=== PATIENT | male | born 1945 | race American Indian/Alaskan Native ===

== ENCOUNTER 2017-11-19 15:18 | Inpatient (IN) | payer MEDICARE, BC ==
--- NOTE | 2017-11-19 15:46 | ED PDOC ---
Arrival/HPI - General Chief Complaint: Chest Pain Time Seen by Provider: 11/19/17 15:44 Historian: Patient, Spouse - History of Present Illness Narrative History of Present Illness (Text): 11/19/17 18:12 pt p/w + upper chest region pain/pressure, at most pain is 6-7/10; non-radiating ; pt states chest pain/pressure wax and wanes; pt + sob/mild lightheadedness, + weakness, + palpitations; pt denied sweats/numbness/tingling; pt states over the last 2-3 days, felt like he is coming down with a cold/illness; pt states + easily fatigued; pt states decr appetite; pt states no fever/chills/sweats, no abd pain, no n/v, no numbness/tingling, no urinary/bowel changes, no gross bleeding; no fall/trauma/sick contact, no travel; pt was treated with abx > 1.5 weeks ago for bronchitis; pt denied other complaints; pt is here for further eval. 11/19/17 18:38 Time/Duration: 24 hours (chest pain this morning), < week (~ 2 days onset of general weakness) Symptom Onset: Sudden Symptom Course: Intermittent Quality: Tightness Severity Level: 7, Severe Activities at Onset: Rest Context: Sitting Past Medical History - Provider Review Nursing Documentation Reviewed: Yes - Travel History Have you recently traveled outside [place] w/in the past 3 mons?: No - Past History Past History: No Previous - Infectious Disease Hx of Infectious Diseases: None - Cardiac Hx Hypertension: Yes - Musculoskeletal/Rheumatological Hx Falls: No - Psychiatric Hx Depression: No Hx Emotional Abuse: No Hx Physical Abuse: No Hx Substance Use: Yes - Suicidal Assessment Feels Threatened In Home Enviroment: No Family/Social History - Physician Review Nursing Documentation Reviewed: Yes Family/Social History: No Known Family HX Smoking Status: Former Smoker Hx Alcohol Use: Yes Hx Substance Use: Yes Substance used: coccaine Hx Substance Use Treatment: No Allergies/Home Meds Allergies/Adverse Reactions: Allergies No Known Allergies Allergy (Verified 11/19/17 15:23) Home Medications: Home Meds Medication Instructions Recorded Confirmed Aspirin [Aspirin EC] 325 mg PO DAILY 11/19/17 11/19/17 Cholecalciferol (Vitamin D3) 2,000 unit PO DAILY 11/19/17 11/19/17 [Vitamin D3] GlipiZIDE [Glipizide] 10 mg PO DAILY 11/19/17 11/19/17 Levofloxacin [Levaquin] 500 mg PO DAILY 11/19/17 11/19/17 Lisinopril/Hydrochlorothiazide 1 each PO DAILY 11/19/17 11/19/17 [Lisinopril-Hctz 10-12.5 mg Tab] Metoprolol Tartrate [Lopressor] 25 mg PO BID 11/19/17 11/19/17 Ranitidine HCl [Sunmark Acid 150 mg PO BID 11/19/17 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] Simvastatin 10 mg PO DAILY 11/19/17 11/19/17 Review of Systems - Review of Systems Constitutional: Fatigue, Other (weakness) Eyes: Normal ENT: Normal Respiratory: SOB Cardiovascular: Chest Pain, Palpitations Gastrointestinal: Normal Genitourinary Male: Normal Musculoskeletal: Normal Skin: Normal Neurological: Normal Endocrine: Normal Hemo/Lymphatic: Normal Psychiatric: Normal Physical Exam Vital Signs Reviewed: Yes (elevated HR) Vital Signs Temp Pulse Resp BP Pulse Ox 11/19/17 18:33 123 H 117/83 11/19/17 15:59 114 H 16 110/79 100 11/19/17 15:52 140 H 120/72 11/19/17 15:33 118/78 11/19/17 15:23 98.3 F 124 H 16 95 11/19/17 15:22 98.3 F 124 H 20 95 Temperature: Afebrile Blood Pressure: Normal Pulse: Tachycardic Respiratory Rate: Normal Appearance: Positive for: Well-Appearing, Non-Toxic, Other (uncomfortable, alert /awake, GCS = 15, oriented x 3, resting in bed, cooperative) Pain Distress: None Mental Status: Positive for: Alert and Oriented X 3 - Systems Exam Head: Present: Atraumatic, Normocephalic Pupils: Present: PERRL Extroacular Muscles: Present: EOMI Conjunctiva: Present: Normal Ears: Present: Normal Mouth: Present: Other (mild dry oral mucosa, no drooling/stridor, fair dentitions, no exudate/lesions) Pharnyx: Present: Normal Nose (External): Present: Atraumatic Neck: Present: Normal Range of Motion, Trachea Midline, Other (no step off, no midline tenderness, no nuchal rigidity, no stridor/dysphonia). No: MIDLINE TENDERNESS Respiratory/Chest: Present: Clear to Auscultation, Good Air Exchange, Other ( CTA b/l, no w/r/r). No: Respiratory Distress, Accessory Muscle Use Cardiovascular: Present: Regular Rate and Rhythm, Normal S1, S2, Other (+tachy, + regular, no regurg). No: Murmurs Abdomen: Present: Normal Bowel Sounds, Other (well nourished male, no focal tenderness, no melendrez's sign, no mcburney's point tenderness). No: Tenderness, Distention, Peritoneal Signs Back: Present: Normal Inspection Upper Extremity: Present: Normal Inspection, Normal ROM, NORMAL PULSES, Neurovascularly Intact, Capillary Refill < 2s. No: Cyanosis, Edema Lower Extremity: Present: Normal Inspection, NORMAL PULSES, Capillary Refill < 2 s, Other (noted mid tib/fib +1/5 b/l pitting edema, NON-tender, no herson's sign, neurovasc intact b/l). No: Edema, Herson's Sign Neurological: Present: GCS=15, CN II-XII Intact, Speech Normal Skin: Present: Warm, Dry, Normal Color, Other (cap refill < 1 sec, no pallor, no ulcerations, no rashes noted). No: Rashes Psychiatric: Present: Alert, Oriented x 3, Normal Insight, Normal Concentration Medical Decision Making ED Course and Treatment: 11/19/17 15:47 Impression: chest pain, sob, weakness i have consider all the differential diagnosis regarding pt's chief medical complaints/clinical findings, including but are not limited to: chest pain, r/o acs; sob/weakness, palpitations A/P: chest pain r/o acs; sob/, weakness, palpitations - labs - iv - xray - acs r/o - unlikely PE - will perform doppler - ua - observe - supportive care 11/19/17 15:59 11/19/17 17:25 pt responded to cardizem bolus but then hr resumes > 100 currently pt states his chest pain is easing pt is comfortable pt is made aware of his medical results agrees with admission I spoke to Dr Calderon, information assurance PCP, made aware, agrees with admission, agrees with ED mgt/txt; would like to consult dr gibson (cardiology) 11/19/17 17:27 pt took a full dose ASA this morning, prior to ED arrival 11/19/17 18:55 pt is placed on cardizem drip pt states his chest pain is improving with NTG pt/family are made aware of pt's medical results, agrees with admission pt's vital signs are improving as well Re-evaluation Time: 18:41 Reassessment Condition: Improving,but remains with symptoms - Critical Care Critical Care Minutes: 45 minutes Critical Care Time: Excluding Proc Time Narrative Critical Care (Text): 11/19/17 17:27 critical care time: 45min, excluding procedure time, excluding time teaching residents/students/mid-level providers; including initial eval/diagnosis, diagnostic interpretation, re-eval, consultations, final disposition - Lab Interpretations Lab Results: 11/19/17 15:20 11/19/17 17:00 Lab Results 11/19/17 17:00: Sodium 142, Potassium 5.0, Chloride 110 H, Carbon Dioxide 21, Anion Gap 17, BUN 36 H, Creatinine 1.4, Est GFR ( Amer) > 60, Est GFR ( Non-Af Amer) 50, Random Glucose 118 H, Calcium 10.0, Magnesium 1.3 L, Total Bilirubin 1.2, AST 43, ALT 52, Alkaline Phosphatase 122, Lactate Dehydrogenase 561, Total Creatine Kinase 65, Troponin I < 0.01, NT-Pro-B Natriuret Pep 2200 H , Total Protein 8.1, Albumin 3.9, Globulin 4.2, Albumin/Globulin Ratio 0.9 L 11/19/17 15:56: POC Glucose (mg/dL) 109 11/19/17 15:20: PT 12.7 H, INR 1.16 H, APTT 34.6 11/19/17 15:20: WBC 9.4, RBC 4.47, Hgb 14.7, Hct 44.2, MCV 98.9, MCH 32.9, MCHC 33.3, RDW 15.3 H, Plt Count 171, MPV 11.0, Gran % 60.6, Lymph % (Auto) 17.8 L, [place] % (Auto) 21.2 H, Eos % (Auto) 0.3 L, Baso % (Auto) 0.1, Gran # 5.70, Lymph # 1.7, [place] # 2.0 H, Eos # 0.0, Baso # 0.01, Neutrophils % (Manual) Pending, Lymphocytes % (Manual) Pending, Monocytes % (Manual) Pending elevated BNP I have reviewed the lab results: Yes Interpretation: Abnormal lab values - RAD Interpretation Radiology Orders: 11/19/17 15:44 CHEST TWO VIEWS (PA/LAT) [RAD] Stat DUPLEX LOWER EXTRM VEIN BILAT [US] Stat Prelim Duplex u/s: negative for dvt b/l Chest xray: mild cardiomeagly, no pleural effusion/edema noted, as read by me HISTORY: chest pain/sob COMPARISON: No prior. TECHNIQUE: Chest PA and lateral FINDINGS: LUNGS: There is a elliptical shaped radiopaque density in the right CP angle region which is of uncertain etiology. This could represent calcified pleural plaque however follow-up CT scan of the chest is recommended to exclude a parenchymal mass. Note that this report was placed in PA review folder for followup. Note however that superior tip right lung apex has been partially obscured by overlying mandible artifact PLEURA: No significant pleural effusion identified. No pneumothorax apparent. CARDIOVASCULAR: Cardiomegaly OSSEOUS STRUCTURES: No significant abnormalities. VISUALIZED UPPER ABDOMEN: Normal. OTHER FINDINGS: None. IMPRESSION: Elliptical shaped radiopaque density right CP angle region of uncertain etiology. Rule out calcified pleural plaque however parenchymal mass not excluded. Followup the CT scan of the chest recommended. Note this report was placed in PA review folder for followup. Digital Marketer: Radiologist - EKG Interpretation EKG Interpretation (Text): 11/19/17 16:01 Atrial flutter at 125 bpm, LAD, no ectopy, non-specific st-t changes, ABNL EKG; no old ekg to compare with Interpreted by ED Physician: Yes Type: 12 lead EKG Comparison: No previous EKG avail. - Medication Orders Current Medication Orders: diltiaZEM IVPB 100mg in NS (Cardizem 100mg In Ns) 100 mls @ 5 mls/hr IV .Q20H PRN; Protocol; 5 MG/HR PRN Reason: TITRATE PER MD ORDER Last Titration: 11/19/17 18:00 Dose: 7.5 mg/hr, 7.5 mls/hr MAR Pulse Rate Document 11/19/17 18:00 AB (Rec: 11/19/17 18:33 [id number]) Pulse Rate Pulse Rate (60-90) 123 Titration Intervention Document 11/19/17 18:00 AB (Rec: 11/19/17 18:33 [id number]) Titration Intake Container Volume 100 Titration Dosing Titration Dose 7.5 IV Rate 7.5 Intake/Decrease Started Discontinued Medications Diltiazem HCl (Cardizem) 15 mg IVP STAT STA Stop: 11/19/17 15:46 Last Admin: 11/19/17 15:52 Dose: 15 mg IVP Administration Document 11/19/17 15:52 AB (Rec: 11/19/17 15:55 [id number]) Charges for Administration # of IVP Administrations 1 MAR Pulse and Blood Pressure Document 11/19/17 15:52 AB (Rec: 11/19/17 15:55 [id number]) Pulse Pulse Rate (60-90) 140 Blood Pressure Blood Pressure (100/60-150/90) 120/72 Diltiazem HCl (Cardizem) 10 mg IVP STAT STA Stop: 11/19/17 18:12 Last Admin: 11/19/17 18:33 Dose: 10 mg IVP Administration Document 11/19/17 18:33 AB (Rec: 11/19/17 18:33 [id number]) Charges for Administration # of IVP Administrations 1 MAR Pulse and Blood Pressure Document 11/19/17 18:33 AB (Rec: 11/19/17 18:33 [id number]) Pulse Pulse Rate (60-90) 123 Blood Pressure Blood Pressure (100/60-150/90) 117/83 Nitroglycerin (Nitro-Bid 2% Oint) 1 ea TOP STAT STA Stop: 11/19/17 18:11 Last Admin: 11/19/17 18:33 Dose: 1 ea Disposition/Present on Arrival - Present on Arrival Any Indicators Present on Arrival: No History of DVT/PE: No History of Uncontrolled Diabetes: No Urinary Catheter: No History of Decub. Ulcer: No History Surgical Site Infection Following: None - Disposition Have Diagnosis and Disposition been Completed?: Yes Diagnosis: Atrial flutter by electrocardiogram, Chest pain syndrome, Shortness of breath Disposition: HOSPITALIZED Disposition Time: 18:10 Patient Plan: Admission, Telemetry Patient Problems: Current Active Problems Problem Status Onset Atrial flutter by electrocardiogram Acute Chest pain syndrome Acute Shortness of breath Acute Condition: FAIR
[2017-11-19 15:54] LABS: BASO # 0.01 K/mm3 (0.0-2.0); BASO % 0.1 % (0.0-3.0); EOS % 0.3 % (1.5-5.0); GRAN % 60.6 % (50.0-68.0); HEMOGLOBIN 14.7 g/dL (14.0-18.0); LYMPH # 1.7 (1.2-3.4); LYMPH % 17.8 % (22.0-35.0); MEAN CELL VOLUME 98.9 fl (80.0-105.0); MEAN CORPUSCULAR HEMOGLOBIN 32.9 pg (25.0-35.0); MEAN CORPUSCULAR HGB CONC 33.3 g/dl (31.0-37.0); MONO % 21.2 % (1.0-6.0); PLATELET COUNT 171 10^3/uL (120.0-450.0); RBC 4.47 10^6/uL (3.5-6.1); RED CELL DISTRIBUTION WIDTH 15.3 % (11.5-14.5); WHITE BLOOD COUNT 9.4 10^3/ul (4.5-11.0)
[2017-11-19 16:09] LABS: INR 1.16 (0.93-1.08); PARTIAL THROMBOPLASTIN TIME 34.6 Seconds (25.1-36.5); PROTHROMBIN TIME 12.7 SECONDS (9.4-12.5)
[2017-11-19 17:15] LABS: ALB/GLOB RATIO 0.9 (1.1-1.8); ALBUMIN 3.9 g/dL (3.0-4.8); ALT/SGPT 52 U/L (7-56); AST/SGOT 43 U/L (17-59); BLOOD UREA NITROGEN 36 mg/dL (7-21); GFR AFRICAN-AMERICAN > 60; GFR NON-AFRICAN AMERICAN 50; MAGNESIUM 1.3 mg/dL (1.7-2.2)
[2017-11-19] MEDS ORDERED: diltiaZEM IVPB 100mg in NS 100 ML IV PRN (17:24)
[2017-11-19 17:27] LABS: B-TYPE NATRIURETIC PEPTIDE 2200 pg/mL (0-450); TROPONIN I < 0.01 ng/mL
--- NOTE | 2017-11-19 18:02 | RAD ---
HISTORY: chest pain/sob COMPARISON: No prior. TECHNIQUE: Chest PA and lateral FINDINGS: LUNGS: There is a elliptical shaped radiopaque density in the right CP angle region which is of uncertain etiology. This could represent calcified pleural plaque however follow-up CT scan of the chest is recommended to exclude a parenchymal mass. Note that this report was placed in PA review folder for followup. Note however that superior tip right lung apex has been partially obscured by overlying mandible artifact PLEURA: No significant pleural effusion identified. No pneumothorax apparent. CARDIOVASCULAR: Cardiomegaly OSSEOUS STRUCTURES: No significant abnormalities. VISUALIZED UPPER ABDOMEN: Normal. OTHER FINDINGS: None. IMPRESSION: Elliptical shaped radiopaque density right CP angle region of uncertain etiology. Rule out calcified pleural plaque however parenchymal mass not excluded. Followup the CT scan of the chest recommended. Note this report was placed in PA review folder for followup.
[2017-11-19] MEDS ORDERED: Nitroglycerin 2% Ointment Foilpak UD TOP STA (18:10)
[2017-11-19 18:43] LABS: NEUTROPHIL 49 % (50.0-70.0)
[2017-11-19 18:44] LABS: EOSINOPHIL 1 % (0.0-3.0); LYMPHOCYTE 30 % (22.0-35.0); MONOCYTE 20 % (1.0-6.0); PLATELET ESTIMATE NORMAL (NORMAL)
[2017-11-19 18:45] LABS: ANISOCYTOSIS SLIGHT
[2017-11-19] MEDS ORDERED: diltiaZEM IVPB 100mg in NS 100 ML IV SCH (19:00)
[2017-11-19] MEDS: Insulin Reg-MEDIUM-Coverage SC SCH (22:01)
[2017-11-19 22:03] LABS: HDL CHOLESTEROL 41 mg/dL (29-60)
[2017-11-19 22:05] VITALS: BMI 36.8
[2017-11-19] MEDS ORDERED: Influenza Vaccine 60 mcg/0.5 mL SYR (4YR UP) IM ONE (22:05)
[2017-11-19] MEDS ORDERED: Pneumococcal 23-Valent Vaccine IM ONE (22:05)
[2017-11-19 22:14] LABS: LDL CHOLESTEROL 49 mg/dL (0-129)
[2017-11-20] MEDS ORDERED: Levalbuterol 0.63 MG/3 ML Inhal Soln UD IH STA (00:23)
[2017-11-20 07:49] LABS: FREE T4 1.14 ng/dL (0.78-2.19)
[2017-11-20 08:03] LABS: ALB/GLOB RATIO 0.9 (1.1-1.8); ALBUMIN 3.5 g/dL (3.0-4.8); CALCIUM 9.4 mg/dL (8.4-10.5); MAGNESIUM 1.3 mg/dL (1.7-2.2)
[2017-11-20] MEDS: Insulin Reg-MEDIUM-Coverage SC SCH ×4 (08:23→22:00)
[2017-11-20] MEDS: Levalbuterol 0.63 MG/3 ML Inhal Soln UD IH SCH ×3 (08:39→20:17)
--- NOTE | 2017-11-20 09:53 | CARD ---
APPROVED REPORT EKG Measurement Heart [id number] P-78 [id number] <Conclusion> Atrial flutter with 2:[address] & T wave abnormality, consider inferolateral ischemia Abnormal ECG
[2017-11-20] MEDS: Cholecalciferol 1,000 INTLU TAB PO SCH (10:23)
[2017-11-20] MEDS ORDERED: guaiFENesin DM 100 mg-10 mg/5 ml UD PO PRN (10:47)
[2017-11-20] MEDS ORDERED: Magnesium Sulfate 1 gm in D5W 1 GM/100 ML BAG IV ONE (14:40)
[2017-11-20] MEDS ORDERED: Sod Polystyrene Sulf 15 gm/60 ml Susp PO ONE (17:05)
--- NOTE | 2017-11-20 18:48 | US ---
HISTORY: Leg pain and swelling. Evaluate for DVT PHYSICIAN(S): Nemesio Vazquez MD. TECHNIQUE: Duplex sonography and color-flow Doppler with graded compression were used to evaluate the deep venous systems of both lower extremities. FINDINGS: The visualized deep venous systems of both lower extremities are sonographically normal and compressible. Normal wave forms and augmentation are seen. There is no sonographic evidence for deep venous thrombosis in the visualized segments of both lower extremities. IMPRESSION: No sonographic evidence for deep venous thrombosis in the visualized segments of both lower extremities.
--- NOTE | 2017-11-20 20:46 | CT ---
EXAM: CT Chest Without Intravenous Contrast EXAM DATE/TIME: 11/20/2017 2:40 PM CLINICAL HISTORY: The patient age is 72 years old and is male; Pain; Chest pain; Type not specified; Additional info: Mass Facility exam id and description: Ct chests chest w/o contrast TECHNIQUE: Axial computed tomography images of the chest without intravenous contrast. All CT scans at this facility use one or more dose reduction techniques, viz.: automated exposure control; ma/kV adjustment per patient size (including targeted exams where dose is matched to indication; i.e. head); or iterative reconstruction technique. Coronal and sagittal reformatted images were created and reviewed. COMPARISON: DX - CHEST TWO VIEWS (PA/LAT) 11/19/2017 4:32:03 PM FINDINGS: Lungs: On series 4 image 69 within the left lower lobe, there is a 1 cm irregular nodule. Mild emphysematous changes are identified within the lungs bilaterally, which are predominantly centrilobular. Increased interstitial markings are identified, most significant peripherally and at the lung bases. Pulmonary fibrosis is suggested. Pleural space: A calcified pleural plaque is identified at the lateral right lung base with adjacent small consolidation. The calcified pleural plaque can be associated with asbestos exposure. Mild bilateral pleural thickening or minimal effusions are visualized. No pneumothorax. Heart: No cardiomegaly. No significant pericardial effusion. 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 Soft tissues: There is bilateral gynecomastia. Vasculature: No thoracic aortic aneurysm. Mild atherosclerotic changes. Lymph nodes: Small mediastinal lymph nodes are visualized, without significant Liver: A small calcification is visualized within the left hepatic lobe. Pancreas: There is peripancreatic stranding, suggestive of acute pancreatitis. There is an isodense nodule in the region of the distal pancreatic tail measuring 2.3 x 1.5 cm. Evaluation of this finding is limited without intravenous contrast. IMPRESSION: 1. Within the left lower lobe, there is a 1 cm irregular nodule. PET/CT is recommended to exclude malignancy. 2. A calcified pleural plaque is identified at the lateral right lung base with adjacent small consolidation. The calcified pleural plaque can be associated with asbestos exposure. A follow-up CT is recommended. 3. Mild bilateral pleural thickening or minimal effusions are visualized. 4. Increased interstitial markings are identified, most significant peripherally and at the lung bases. Pulmonary fibrosis is suggested. 5. There is peripancreatic stranding, suggestive of acute pancreatitis. Correlation with pancreatic enzymes is recommended. 6. There is an isodense nodule in the region of the distal pancreatic tail measuring 2.3 x 1.5 cm. A nonemergent MRI of the abdomen with contrast is recommended. 7. Incidental/non-acute findings are described above.
--- NOTE | 2017-11-20 23:49 | HP ---
HISTORY OF PRESENT ILLNESS: The patient 72-year-old, states he has not been feeling well for last almost a week. He has been coughing. He was very congested. No hemoptysis. The patient states yesterday he started having chest discomfort that brought him to the hospital for further evaluation. Denies any palpitation or dizziness. No headache. The patient states he did have stress test, but long time ago. Does complain of generalized weakness and shortness of breath. No history of nausea or vomiting. No history of fever or chills. He did have almost a week ago, but got better now. PAST MEDICAL HISTORY: Significant for hypertension and non-insulin dependent diabetes. ALLERGIES: HE IS NOT ALLERGIC TO ANY MEDICATION. MEDICATIONS AT HOME: He is on; 1. Simvastatin 10 mg daily. 2. Ranitidine 150 mg twice a day. 3. Metoprolol 25 twice a day. 4. Lisinopril 10/12.5 daily. 5. Glipizide 10 mg daily. 6. Aspirin 81 daily. SOCIAL HISTORY: He used to be heavy smoker before and he did use illicit drugs couple of years ago, but quit years ago and he does socially drinks. REVIEW OF SYSTEMS: Significant for cough and congestion and intermittent chest pressure. PHYSICAL EXAMINATION GENERAL: He is awake, alert, oriented, able to communicate. VITAL SIGNS: He is afebrile, pulse 112, respirations 20, blood pressure 113/72. LUNGS: Bilateral fair airflow. No rhonchi or crackle. HEART: S1 and S2 audible. ABDOMEN: Soft, nontender. No rebound. No guarding. NEUROLOGIC: He is awake, alert, oriented, communicative. LABORATORY DATA: WBC 9.4, hemoglobin 14, hematocrit 44, platelet 71. PT 12.7, INR 1.16. Chemistry; sodium 138, potassium 5.6, chloride 108, CO2 21, BUN 38, creatinine 1.5, blood sugar of 122, magnesium 1.3, total bili 1.5. His EKG shows AFib with 2:1 AV conduction block and x-ray chest. X-ray chest shows elliptical density questionable mass. ASSESSMENT AND PLAN: 1. Chest pain. 2. New onset atrial fibrillation, rule out underlying coronary ischemia. 3. Morbid obesity. 4. Nwb-lghxzwl-dckdnqlwu diabetes. 5. Hypertension. 6. Hypomagnesemia. PLAN: Currently, the patient is on diltiazem 60 mg three times a day. He is on doxycycline. We will give him nebulizer treatment and supplement his magnesium. Cardiology consult by Dr. Bui has been requested. We will order for echocardiogram. Followup thyroid profile and I will order for CT scan of the chest to further define the density and his lower lung region. Vilma Calderon MD
--- NOTE | 2017-11-21 04:13 | CON ---
DATE: 11/20/2017 LOCATION: The patient is in room 378, bed 1. REASON FOR CONSULTATION: Chest pain, atrial flutter, hypertension, diabetes, high cholesterol, and COPD. HISTORY OF PRESENT ILLNESS: The patient is a 72-year-old male known case of COPD, high blood pressure, diabetes, high cholesterol, admitted with history that few days ago, he has symptoms of sore throat and cough and now on the day of admission, he started getting throbbing type of chest pain off and on. Prior to this, he never had any exertional chest pain or any cardiac problem that he knows of. When he came to Emergency Room, he was found to have atrial flutter with 2:1 block with heart rate around 124 per minute. The patient denies any palpitations or dizziness. PAST MEDICAL HISTORY: As mentioned before, the patient known to have COPD, high blood pressure, diabetes, and high cholesterol. He also states once he had slurring of speech and it resolved, but that time he also using cocaine. PERSONAL HISTORY: He stopped drinking 3 years ago, he used to smoke half pack a day, he used to drink heavy, and 3 years ago stopped it. The patient also used to use cocaine. FAMILY HISTORY: Mother had breast carcinoma. Father has some pulmonary problems. ALLERGIES: THE PATIENT DENIED ANY ALLERGIES. MEDICATIONS: The patient's home medications included aspirin 325 mg daily, vitamin D3 2000 units p.o. daily, glipizide 10 mg daily, Levaquin 500 mg daily, lisinopril/hydrochlorothiazide 10-12.5 mg daily, metoprolol tartrate 25 mg b.i.d., ranitidine HCl 150 b.i.d., and simvastatin 10 mg daily. REVIEW OF SYSTEMS: All the systems reviewed, positive mentioned in the history otherwise negative. PHYSICAL EXAMINATION: VITAL SIGNS: Blood pressure 123/75, respirations 18, pulse is 124 per minute, and temperature 98. HEENT: Head is normocephalic. Eyes; pupils are normal. Conjunctivae are normal. Nose and throat are normal. NECK: JVP low. Carotids are equal. THORAX: AP diameter normal. LUNGS: Clear. CARDIOVASCULAR: S1 and S2. ABDOMEN: Protuberant. No organomegaly. Bowel sounds normal. EXTREMITIES: No clubbing. No cyanosis. LABORATORY DATA: WBC 9.4, hemoglobin 14.7, hematocrit 44.2, and platelet 171. Sugar 65. Sodium 142, potassium 5.0, BUN 36, and creatinine 1.4. AST and ALT normal. Magnesium 1.3. Troponin less than 0.01. NT-proBNP 2200. Chest x-ray showed elliptical shaped radiopaque density, right costophrenic angle of uncertain etiology. EKG showed atrial flutter with 2:1 AV conduction, ST-T changes. DIAGNOSES: Atypical type chest pain, atrial flutter 2:1 block, chronic obstructive pulmonary disease, high blood pressure, diabetes, high cholesterol, and renal dysfunction. PLAN: Echo has been already ordered. We will do IV Lexiscan stress test. We will also check lipid profile and TSH. The patient on Cardizem 60 mg p.o. t.i.d., but his heart rate is still 118, so we will add atenolol 25 mg now and 25 mg daily to control the heart rate. We will Lopressor 25 mg b.i.d. We will continue atorvastatin 10 mg daily, glipizide 10 mg p.o. daily, Eliquis 5 mg b.i.d., and doxycycline hyclate 100 mg p.o. q.12 hours. The patient already has achieved sodium polystyrene 30 g, atorvastatin 10 mg daily. The patient also received magnesium sulfate 1 g IV, vancomycin 250 p.o. four times daily, and lisinopril 10 mg daily. We will check TSH and lipid profile in a.m. and echo has been already requested. We will also do IV Lexiscan stress test and we will monitor with you and follow with you. Ceferino Roman MD
[2017-11-21] MEDS: Levalbuterol 0.63 MG/3 ML Inhal Soln UD IH SCH ×3 (07:33→19:27)
[2017-11-21 07:58] LABS: ALB/GLOB RATIO 0.9 (1.1-1.8); ALBUMIN 3.4 g/dL (3.0-4.8); ALT/SGPT 38 U/L (7-56); AST/SGOT 25 U/L (17-59); BLOOD UREA NITROGEN 49 mg/dL (7-21); CALCIUM 9.3 mg/dL (8.4-10.5); GFR AFRICAN-AMERICAN 33; GFR NON-AFRICAN AMERICAN 27; HDL CHOLESTEROL 37 mg/dL (29-60); LDL CHOLESTEROL < 30 mg/dL (0-129); MAGNESIUM 1.6 mg/dL (1.7-2.2)
[2017-11-21] MEDS ORDERED: Aminophylline 25 mg/ml Inj ONE (09:17)
[2017-11-21] MEDS: Insulin Reg-MEDIUM-Coverage SC SCH ×4 (09:48→22:19)
[2017-11-21] MEDS ORDERED: Sodium Chloride 0.9% 1,000 ML IV SCH (12:30)
[2017-11-21] MEDS ORDERED: Digoxin 500 mcg/2ml (0.5 mg/2ml) Inj IVP STA (12:36)
[2017-11-21] MEDS ORDERED: Magnesium Sulfate 1 gm in D5W 1 GM/100 ML BAG IVPB ONE (12:42)
[2017-11-21 12:57] LABS: AMYLASE 43 U/L (35-125); LIPASE 32 U/L (23-300)
--- NOTE | 2017-11-21 13:01 | PN ---
DATE: 11/21/2017 LOCATION: The patient in room 378, bed 1. REASON FOR CONSULTATION: Chest pain, atrial flutter, hypertension, diabetes, high cholesterol, COPD, obesity. SUBJECTIVE: The patient was admitted with yesterday chest pain, found to have atrial flutter. Today, the patient says he does not have any chest pain. He does not feel any palpitation or shortness of breath, but monitor continued to show atrial flutter and heart rate around 116 per minute. Yesterday, heart rate was around 124 to 128 per minute. The patient is lying flat in bed without any cardiac symptoms. PHYSICAL EXAMINATION: VITAL SIGNS: Blood pressure is 93/69, respirations 19, pulse 116, temperature 97.4. HEENT: Head is normocephalic. Eyes: Pupils normal. Conjunctivae normal. Nose and throat normal. NECK: JVP low. Carotids equal. THORAX: AP diameter normal. LUNGS: Clear. CARDIOVASCULAR: S1 and S2. ABDOMEN: Protuberant. No organomegaly. EXTREMITIES: No clubbing. No cyanosis. LABORATORY DATA: WBC 9.4, hemoglobin 14.7, hematocrit 44.2, platelets 171. Sodium 137, potassium 4.4, BUN 49, creatinine 2.4, magnesium is 1.6. TSH 1.31, which is normal. Total protein, albumin normal. DIAGNOSES: Atypical chest pain, atrial flutter, 2:1 block, chronic obstructive pulmonary disease, high blood pressure, diabetes, high cholesterol, renal dysfunction, hypomagnesemia. PLAN: The patient is going to have echo and IV Lexiscan stress test today. We will give one stat dose of digoxin 0.25 IV stat and verapamil 2.5 IV stat. The patient is already on atenolol 25 mg daily and Cardizem 60 p.o. t.i.d., atorvastatin 10 daily, glipizide 10 daily, Eliquis 5 mg b.i.d., doxycycline hyclate 100 mg q. 12 hours. We will give mag sulfate 1 g IV. I will repeat labs in the morning. The patient is also getting vancomycin 250 mg p.o. 4 times a day and lisinopril 10 mg daily. We will follow with you. Ceferino Roman MD
[2017-11-21] MEDS: Vancomycin 25 MG/ML PO SCH ×4 (13:02→23:20)
[2017-11-21] MEDS: Sodium Chloride 0.9% 1,000 ML IV SCH (13:37)
[2017-11-21] MEDS: Cholecalciferol 1,000 INTLU TAB PO SCH (14:28)
--- NOTE | 2017-11-21 14:53 | CARD ---
APPROVED REPORT Protocol: LEXISCAN Test Type: Lexiscan Sestamibi Stress Test Attending Physician: Dr. Ceferino Roman Referring Physician: Dr. Vilma Calderon Test Indications: Chest Pain Height:5 ft 6 in Weight:225lbs Medications: TYLENOL, ELIQUIS, TENORMIN, LIPITOR, VITAMIN D, CARDIZEM, DORYX, PEPCID, GLUCOTROL, ROBITUSSIN DM, XOPENEX, ZESTRIL, VANCOMYCIN Medical History: 72 YEAR OLD MALE WITH A H/O DIABETES, HTN, HIGH CHOLESTEROL, GERD, ULCERS AND ARTHRITIS Target HR: 150 bpm Resting ECG: Atrial Flutter 2:1 Block. Resting Heart Rate: 116 bpm Resting Blood Pressure: 108/66mmHg Submaximum (85%): 128 bpm PROCEDURE Pharmacologic stress testing was performed using 0.4mg per 5ml of regadenoson given intravenously over 7-10 seconds. POST EXERCISE Reason for Termination: Protocol completed Target HR: No Max HR: 116 bpm 80% of Maximum Predicted HR: 150 bpm Exercise duration: 00:32 min:sec, 0 Stage Exercise capacity: 1.0METs Max Blood Pressure: 108/66mmHg Blood Pressure response to exercise: normal resting BP - appropriate response Heart Rate response to exercise: appropriate Chest Pain: No, none Angina index: 0 Arrhythmia: Yes, Atrial Flutter as on Resting EKG. ST Change: No, none Deviation: 0 mm INTERPRETATION Stress EKG Conclusion: IV LEXISCAN NUCLEAR STRESS TEST NEGATIVE FOR CHEST PAIN AND NEGTIVE FOR ST-T CHANGES. NUCLEAR SCAN REPORT PENDING. Signed by Ceferino Roman Electronically Approved: 11/21/2017 10:53:37 EXAM: Myocardial Perfusion REST/STRESS Stress Test Type: Pharmacologic Imaging Protocol Rest Spect myocardial perfusion imaging was performed in supine position 45 minutes following the injection of 10.6 mCi of Tc-99 Myoview. At peak stress, the patient was injected intravenously with 30.2mCi of Tc-99 tetrofosmin after an infusion time of 0 minutes and 10 seconds. Gated Stress Spect was performed 65 minutes after intravenous Tc-99 Myoview injection. The images were gated to evaluate regional wall motion and calculate ventricular ejection fraction.Images were reconstructed using backfilter projection method in short horizontal and verticle long axis. Spect slices were generated. LV Perfusion The quality of the study is good. The left ventricle is within normal limits in size. The right ventricle is unremarkable. The lung uptake is within normal limits. The distribution of tracer reveals an area of moderately to severely decreased perfusion in the apical/ distal inferior wall and moderately and diffusely decreased perfusion in the mid to basal inferior wall on the stress studyy. The remainder of the LV myocardium is unremarkable. The rest myocardial perfusion study shows improvement of the apical/ distal inferior defect and no signifiicant change in the mid to basal inferior defect. Wall Motion Wall motion study shows diffuse hypokinesis and paradoxical septal wall motion of the left ventricle. LVEF =32%. Conclusion 1. Abnormal SPECT myocardial perfusion study. 2. Partially reversible, apical/ distal inferior defect is suspicious of ischemia. 3. Fixed, mid to basal inferior defect is most liklely due to diaphragmatic attenuation. 4. Moderate LV dysfunction with diffuse hypokinesis and paradoxical septal wall motion.
--- NOTE | 2017-11-21 15:42 | CP.PCM.CON ---
<Sahara Fields - Last Filed: 11/21/17 17:35> History of Present Illness - History of Present Illness History of Present Illness: Seen and examined at the bedside this afternoon, chart reviewed. Request for GI consultation is for acute pancreatitis. HPI:this is a 72-year-old male with a past medical history of hypertension, non- insulin-dependent diabetes, hyperlipidemia and COPD came to the emergency room with complaints of coughing and generalized weakness, SOB, and chest discomfort. The patient was recently treated for bronchitis over a week and a half ago with antibiotics. He denies any hemoptysis, nausea, vomiting, or abdominal pain. the patient had a stress test this morning, results are pending. Yesterday the patient went for a CAT scan of the chest without contrast which reported a 1 cm irregular nodule in the left lower lobe as well as peripancreatic stranding suggestive of acute pancreatitis. As well as a 2.3 x 1.5 cm isodense nodule in the region of the distal pancreatic tail. The patient denies any history of known pancreatitis, he does have a history of heavy alcohol use in the past, the patient reports that he stands cut down and only drinks socially. His last alcohol intake was last Sunday and reports only having a shot of alcohol. He does report decreased appetite recently and reports losing at least 10 pounds, patient states he is trying to lose weight and his is been watching his dietary intake. His last endoscopy and colonoscopy were more than 5 or 6 years ago, he has history of colon polyps and peptic ulcer disease. The patient informs that he is due for an endoscopy and colonoscopy on December 05/[address] Varma at [facility]. currently the patient denies any diarrhea or constipation but a review of his chart he reportedly had diarrhea yesterday and stool for C. difficile is pending and has been started on oral vancomycin. Denies melena or bright red blood per rectum. Past medical history: Hypertension, uqg-cdicykx-wwigjsfsd diabetes, colon polyps , hyperlipidemia, peptic ulcer disease, COPD Past surgical history: Denies, no cardiac interventions Family history: Noncontributory at this time Allergies: No known drug allergies Social history: Patient was a heavy smoker in the past, also reported drinking heavily in the past but has long since cut down and only drinks socially, last alcohol intake was last Sunday. History of drugs in the past Medications: Reviewed as per MAR ROS: Systems reviewed positive findings see HPI. Past Patient History - Infectious Disease Hx of Infectious Diseases: None - Past Social History Smoking Status: Former Smoker - CARDIAC Hx Hypercholesterolemia: Yes Hx Hypertension: Yes - PULMONARY Hx Bronchitis: Yes (recent bronchitis) - NEUROLOGICAL Hx Seizures: Yes (4/5 yrs ago) - HEENT Hx HEENT Problems: Yes (eyeglasses) - ENDOCRINE/METABOLIC Hx Diabetes Mellitus Type 2: Yes - MUSCULOSKELETAL/RHEUMATOLOGICAL Hx Arthritis: Yes - GASTROINTESTINAL Hx Gastrointestinal Disorders: Yes (obese) Hx Gastroesophageal Reflux: Yes Hx Ulcer: Yes (1965) - PSYCHIATRIC Hx Substance Use: Yes (quit "yrs ago") Meds Allergies/Adverse Reactions: Allergies Allergy/AdvReac Type Severity Reaction Status Date / Time No Known Allergies Allergy Verified 11/19/17 15:23 - Medications Medications: Current Medications Acetaminophen (Tylenol 325mg Tab) 650 mg PO Q4H PRN PRN Reason: Pain, Mild (1-3) Apixaban (Eliquis) 5 mg PO BID [facility] PRN Reason: Protocol Last Admin: 11/20/17 18:02 Dose: 5 mg Atenolol (Tenormin) 25 mg PO DAILY [facility] Atorvastatin Calcium (Lipitor) 10 mg PO DIN [facility] Last Admin: 11/20/17 18:03 Dose: 10 mg Cholecalciferol (Vitamin D) 2,000 intlu PO DAILY [facility] Last Admin: 11/20/17 10:23 Dose: 2,000 intlu Diltiazem HCl (Cardizem) 60 mg PO TID [facility] Last Admin: 11/21/17 12:58 Dose: Not Given Doxycycline Hyclate (Doryx) 100 mg PO Q12 [facility] PRN Reason: Protocol Last Admin: 11/20/17 21:32 Dose: 100 mg Famotidine (Pepcid) 20 mg PO BID [facility] Last Admin: 11/20/17 18:03 Dose: 20 mg Glipizide (Glucotrol) 10 mg PO ACB [facility] Last Admin: 11/21/17 12:59 Dose: Not Given Guaifenesin/Dextromethorphan (Robitussin Dm) 5 ml PO Q4H PRN PRN Reason: Cough Last Admin: 11/20/17 11:47 Dose: 5 ml Magnesium Sulfate/Dextrose (Magnesium Sulfate 1 Gm/100 Ml D5w) 1 gm in 100 mls @ 100 mls/hr IVPB ONCE ONE Stop: 11/21/17 13:41 Sodium Chloride (Sodium Chloride 0.9%) 1,000 mls @ 50 mls/hr IV .Q20H [facility] Insulin Human Regular (Humulin R Med) 0 units SC ACHS [facility] PRN Reason: Protocol Last Admin: 11/21/17 13:00 Dose: Not Given Levalbuterol HCl (Xopenex) 0.63 mg IH TIDRESP [facility] Last Admin: 11/21/17 13:28 Dose: 0.63 mg Lisinopril (Zestril) 10 mg PO DAILY [facility] Last Admin: 11/20/17 10:23 Dose: 10 mg Vancomycin HCl (Vancocin 25 Mg/Ml (Oral Use)) 250 mg PO QID [facility] PRN Reason: Protocol Last Admin: 11/21/17 13:02 Dose: Not Given Physical Exam - Constitutional Appears: No Acute Distress - Head Exam Head Exam: NORMOCEPHALIC - Eye Exam Eye Exam: Normal appearance. absent: Scleral icterus - ENT Exam ENT Exam: Mucous Membranes Moist - Neck Exam Neck exam: Positive for: Normal Inspection - Respiratory Exam Respiratory Exam: Decreased Breath Sounds, NORMAL BREATHING PATTERN. absent: Respiratory Distress - Cardiovascular Exam Cardiovascular Exam: +S1, +S2 - GI/Abdominal Exam GI & Abdominal Exam: Normal Bowel Sounds, Soft. absent: Guarding, Organomegaly , Rebound, Tenderness - Extremities Exam Extremities exam: Positive for: pedal edema, pedal pulses present. Negative for : calf tenderness - Neurological Exam Neurological exam: Alert, Oriented x3 - Skin Skin Exam: Dry, Warm Results - Vital Signs Recent Vital Signs: Last Vital Signs Temp 97.4 F L 11/21/17 06:00 Pulse 118 H 11/21/17 13:21 Resp 19 11/21/17 06:00 BP 112/74 11/21/17 13:21 Pulse Ox 95 11/21/17 06:00 - Labs Result Diagrams: 11/19/17 15:20 11/21/17 06:30 Labs: Laboratory Results - last 24 hr 11/20/17 11/20/17 11/20/17 06:30 13:17 16:06 Sodium Potassium Chloride Carbon Dioxide Anion Gap BUN Creatinine Est GFR ( Amer) Est GFR (Non-Af Amer) POC Glucose (mg/dL) 110 65 Random Glucose Hemoglobin A1c 6.6 H Calcium Magnesium Total Bilirubin AST ALT Alkaline Phosphatase Total Protein Albumin Globulin Albumin/Globulin Ratio Triglycerides Cholesterol LDL Cholesterol Direct HDL Cholesterol Amylase Lipase TSH 3rd Generation 11/21/17 11/21/17 11/21/17 06:30 06:30 06:30 Sodium 137 Potassium 4.4 Chloride 107 Carbon Dioxide 18 L Anion Gap 16 BUN 49 H Creatinine 2.4 H Est GFR ( Amer) 33 Est GFR (Non-Af Amer) 27 POC Glucose (mg/dL) Random Glucose 74 Hemoglobin A1c Calcium 9.3 Magnesium 1.6 L Total Bilirubin 1.0 AST 25 ALT 38 Alkaline Phosphatase 112 Total Protein 7.3 Albumin 3.4 Globulin 3.8 Albumin/Globulin Ratio 0.9 L Triglycerides 68 Cholesterol 90 L LDL Cholesterol Direct < 30 HDL Cholesterol 37 Amylase 43 Lipase 32 TSH 3rd Generation 1.31 11/21/17 07:36 Sodium Potassium Chloride Carbon Dioxide Anion Gap BUN Creatinine Est GFR ( Amer) Est GFR (Non-Af Amer) POC Glucose (mg/dL) 62 L Random Glucose Hemoglobin A1c Calcium Magnesium Total Bilirubin AST ALT Alkaline Phosphatase Total Protein Albumin Globulin Albumin/Globulin Ratio Triglycerides Cholesterol LDL Cholesterol Direct HDL Cholesterol Amylase Lipase TSH 3rd Generation Assessment & Plan - Assessment and Plan (Free Text) Assessment: Assessment: Chest pain status post stress test New-onset atrial fibrillation, on aliquots Acute pancreatitis, unknown etiology,differentials to Consider is medication- induced, alcohol on CT found to have a pancreatic tail nodule, normal amylase/ lipase level. Left lower lobe irregular nodule r/o malignancy Renal insufficiency Npz-dkcattj-vqaopzdlb diabetes Hypertension Hyperlipidemia Plan: On oral antibiotics Follow-up stool for C. difficile On oral vancomycin Patient not a candidate for CT with pancreatic protocol, patient with poor renal insufficiency not a candidate for IV contrast at this time, will request for MRCP w/MRI abdomen with NO contrast. Continue GI prophylaxis on Pepcid On Thank you for this consult and for management was to participate in your patient 's care. Further recommendations based on clinical course. Seen and discussed with Dr. Healy. <Yung Healy V - Last Filed: 11/21/17 19:47> Meds - Medications Medications: Current Medications Acetaminophen (Tylenol 325mg Tab) 650 mg PO Q4H PRN PRN Reason: Pain, Mild (1-3) Apixaban (Eliquis) 2.5 mg PO BID [facility] PRN Reason: Protocol Last Admin: 11/21/17 18:57 Dose: Not Given Atenolol (Tenormin) 25 mg PO DAILY [facility] Last Admin: 11/21/17 14:29 Dose: 25 mg Atorvastatin Calcium (Lipitor) 10 mg PO DIN [facility] Last Admin: 11/21/17 18:07 Dose: 10 mg Cholecalciferol (Vitamin D) 2,000 intlu PO DAILY [facility] Last Admin: 11/21/17 14:28 Dose: 2,000 intlu Doxycycline Hyclate (Doryx) 100 mg PO Q12 [facility] PRN Reason: Protocol Last Admin: 11/21/17 14:29 Dose: 100 mg Famotidine (Pepcid) 20 mg PO BID [facility] Last Admin: 11/21/17 18:07 Dose: 20 mg Glipizide (Glucotrol) 10 mg PO ACB [facility] Last Admin: 11/21/17 12:59 Dose: Not Given Guaifenesin/Dextromethorphan (Robitussin Dm) 5 ml PO Q4H PRN PRN Reason: Cough Last Admin: 11/20/17 11:47 Dose: 5 ml Sodium Chloride (Sodium Chloride 0.9%) 1,000 mls @ 50 mls/hr IV .Q20H [facility] Last Admin: 11/21/17 13:37 Dose: 50 mls/hr Insulin Human Regular (Humulin R Med) 0 units SC ACHS [facility] PRN Reason: Protocol Last Admin: 11/21/17 17:53 Dose: Not Given Levalbuterol HCl (Xopenex) 0.63 mg IH TIDRESP [facility] Last Admin: 11/21/17 19:27 Dose: 0.63 mg Lisinopril (Zestril) 10 mg PO DAILY [facility] Last Admin: 11/21/17 14:29 Dose: 10 mg Vancomycin HCl (Vancocin 25 Mg/Ml (Oral Use)) 250 mg PO QID [facility] PRN Reason: Protocol Last Admin: 11/21/17 18:08 Dose: 250 mg Verapamil HCl (Calan Tab) 40 mg PO TID [facility] Verapamil HCl (Calan Tab) 40 mg PO ONCE ONE Stop: 11/21/17 20:01 Results - Vital Signs Recent Vital Signs: Last Vital Signs Temp 98.4 F 11/21/17 12:00 Pulse 116 H 11/21/17 18:07 Resp 20 11/21/17 12:00 BP 101/70 11/21/17 18:07 Pulse Ox 95 11/21/17 06:00 - Labs Result Diagrams: 11/19/17 15:20 11/21/17 06:30 Labs: Laboratory Results - last 24 hr 11/21/17 11/21/17 11/21/17 06:30 06:30 06:30 Sodium 137 Potassium 4.4 Chloride 107 Carbon Dioxide 18 L Anion Gap 16 BUN 49 H Creatinine 2.4 H Est GFR ( Amer) 33 Est GFR (Non-Af Amer) 27 POC Glucose (mg/dL) Random Glucose 74 Calcium 9.3 Magnesium 1.6 L Total Bilirubin 1.0 AST 25 ALT 38 Alkaline Phosphatase 112 Total Protein 7.3 Albumin 3.4 Globulin 3.8 Albumin/Globulin Ratio 0.9 L Triglycerides 68 Cholesterol 90 L LDL Cholesterol Direct < 30 HDL Cholesterol 37 Amylase 43 Lipase 32 TSH 3rd Generation 1.31 11/21/17 11/21/17 07:36 12:32 Sodium Potassium Chloride Carbon Dioxide Anion Gap BUN Creatinine Est GFR ( Amer) Est GFR (Non-Af Amer) POC Glucose (mg/dL) 62 L 144 H Random Glucose Calcium Magnesium Total Bilirubin AST ALT Alkaline Phosphatase Total Protein Albumin Globulin Albumin/Globulin Ratio Triglycerides Cholesterol LDL Cholesterol Direct HDL Cholesterol Amylase Lipase TSH 3rd Generation Attending/Attestation - Attestation I have personally seen and examined this patient.: Yes I have fully participated in the care of the patient.: Yes I have reviewed all pertinent clinical information: Yes Notes (Text): This is an addendum to GI progress report dictated by Sahara Fields APN.The patient was seen and examined earlier. Medical records, lab studies, imagings were reviewed. Last 24 hours events reviewed. Agreed with the above treatment plan as outlined in Sahara Fields APN's notes the with the addition of the following discussed with the patient and also patient's was at bedside Patient is seen informatics physician liaison Dr. Varma and he is due to have an endoscopy and colonoscopy procedure scheduled The CT scan was reviewed On examination abdomen soft nontender Would request an MRI of the abdomen with MRCP to further evaluate pancreas Patient has chronic kidney disease and requested the scan to be done with no contrast patient may need EUS which will consider after reviewing the MRI cardiac dysrhythmia atrial flutter with block on elaquis on by mouth vancomycin empirically ,recent stool for C. difficile was negative . We Will follow up clinically 11/21/17 19:45
[2017-11-21] MEDS ORDERED: Digoxin 500 mcg/2ml (0.5 mg/2ml) Inj IVP ONE (18:15)
--- NOTE | 2017-11-21 19:23 | CARD ---
APPROVED REPORT EXAM: Two-dimensional and M-mode echocardiogram with Doppler and color Doppler. INDICATION Dyspnea 2D DIMENSIONS Left Atrium (2D)5.4 (1.6-4.0cm)IVSd1.1 (0.7-1.1cm) LVDd4.2 (3.9-5.9cm)PWd1.2 (0.7-1.1cm) LVDs3.5 (2.5-4.0cm)FS (%) 16.2 % LVEF (%)34.4 (>50%) M-Mode DIMENSIONS Aortic Root3.10 (2.2-3.7cm)Aortic Cusp Exc.1.80 (1.5-2.0cm) Aortic Valve AoV Peak Nqnqpnzw688.0cm/Che Peak GR.8mmHg Mitral Valve E/A ratio0.0 TDI E/Lateral E'0.0E/Medial E'0.0 Pulmonary Valve PV Peak Rsrvkvlw75.5cm/sPV Peak Grad.1mmHg Tricuspid Valve TR Peak [id number]/sRAP [id number] Peak Gr.27mmHg [id number] LEFT VENTRICLE The left ventricle is normal size. There is mild concentric left ventricular hypertrophy. The systolic function is mildly to moderately impaired.EF-35-40% There is normal LV segmental wall motion. ( Afib) A fib No left ventricle thrombus noted on this study. There is no ventricular septal defect visualized. There is no left ventricular aneurysm. There is no mass noted in the left ventricle. RIGHT VENTRICLE The right ventricle is moderately dilated. There is normal right ventricular wall thickness. Systolic function is moderately reduced. ATRIA The left atrium is mildlto moderately dilated. The right atrium is moderate to severely dilated. The interatrial septum is intact with no evidence for an atrial septal defect. AORTIC VALVE The aortic valve is calcified and displays decreased opening. The aortic valve is moderately to severely sclerotic. There is trace aortic regurgitation. There is mild valvular aortic stenosis, Non coronary Cusp is calcified and relatively immobile. There is no aortic valvular vegetation. MITRAL VALVE The mitral valve is thickened but opens well. Mitral regurgitation is moderate. There is no mitral valve stenosis. There is no evidence of mitral valve prolapse. TRICUSPID VALVE The tricuspid valve leaflets are thickened , but open well. There is moderate to severe tricuspid regurgitation. Recorded RVSP-37 mmof hg is underestmating secondary to TR Jet confoguration. There is no tricuspid valve stenosis. There is no tricuspid valve prolapse or vegetation. PULMONIC VALVE The pulmonic valve is mildly thickened. There is trace pulmonic valvular regurgitation. GREAT VESSELS The aortic root is normal in size. The ascending aorta is normal in size. The pulmonary artery is normal. The IVC is dilated. PERICARDIAL EFFUSION There is no pleural effusion. There is no pericardial effusion. <Conclusion> The left ventricle is normal size. There is mild concentric left ventricular hypertrophy. The systolic function is mildly to moderately impaired.EF-35-40% There is trace aortic regurgitation. Mitral regurgitation is moderate. There is moderate to severe tricuspid regurgitation. Recorded RVSP-37 mmof hg is underestmating secondary to TR Jet confoguration. The IVC is dilated. There is no pericardial effusion. The left atrium is mildlto moderately dilated. The right atrium is moderate to severely dilated. The right ventricle is moderately dilated.
--- NOTE | 2017-11-22 00:25 | PN ---
SUBJECTIVE: The patient is 72-year-old, seen and examined, still has shortness of breath, still has cough. No nausea or vomiting. He had diarrhea yesterday, that has improved. PHYSICAL EXAMINATION: VITAL SIGNS: He is afebrile, pulse 116, respirations 18, blood pressure 101/70. LUNGS: Bilateral fair airflow. No rhonchi or crackle. HEART: S1 and S2 audible. ABDOMEN: Soft, nontender. Obese. No hepatosplenomegaly. NEUROLOGICAL: The patient is awake, alert, and oriented, able to communicate. LABORATORY DATA: His amylase is 43 and lipase is 32. Blood sugar is 144. The patient had CT scan of the chest done that shows 1 cm nodule in the left lower lung area, left lower lobe, that is 1 cm irregular nodule. I can see white pleural plaque in the lateral right angle base and bilateral plural thickening with increased interstitial markings. The patient also has peripancreatic stranding suggestive of acute pancreatitis. The patient's stress test is positive for reversible ischemia. ASSESSMENT: 1. New onset of atrial fibrillation. 2. Hypertension. 3. Coronary artery disease. 4. Pulmonary nodule. 5. Morbid obesity. 6. Twr-wxcreev-ewwmgfwsx diabetes. PLAN: We will continue the patient on verapamil. He is on doxycycline. Continue on Eliquis, has been started by tool adjuster. Continue on glipizide. Since the patient has profuse diarrhea yesterday, we will give IV fluids for 24 hours, follow up serum creatinine and BUN and I will request Dr. Nemesio Vazquez to elevate for left lower lung nodule, and also MRCP of the abdomen has been requested. Vilma Calderon MD
[2017-11-22] MEDS ORDERED: Sodium Chloride 0.9% 250 ML IV SCH (04:25)
[2017-11-22 06:52] LABS: CALCIUM 8.7 mg/dL (8.4-10.5); MAGNESIUM 1.8 mg/dL (1.7-2.2)
[2017-11-22] MEDS: Levalbuterol 0.63 MG/3 ML Inhal Soln UD IH SCH ×3 (07:58→20:44)
[2017-11-22] MEDS: Insulin Reg-MEDIUM-Coverage SC SCH ×4 (08:46→21:52)
--- NOTE | 2017-11-22 10:45 | MRI ---
PROCEDURE: Magnetic Resonance Cholangiopancreatography HISTORY: Follow-up pancreatic nodule seen on CT COMPARISON: CT 11/20/2017. TECHNIQUE: Multiplanar, multisequence MR images of the abdomen were obtained, including heavily T2 weighted MRCP images of the biliary system. Rotating maximum intensity projection images of the biliary system were generated. FINDINGS: MRCP: The common bile duct is of a normal caliber. No evidence of choledocholithiasis. No intrahepatic biliary ductal dilatation. LIVER: Unremarkable. GALLBLADDER: There is a small amount of fluid surrounding the gallbladder. There is no wall thickening. There are no gallstones visualized. Significance of finding is uncertain. SPLEEN: Unremarkable. PANCREAS: There is no evidence of a pancreatic mass. The nodule seen on CT probably represents normal pancreatic tissue. There is no ductal dilatation or cyst formation. ADRENALS: Unremarkable. KIDNEYS: Unremarkable. AORTA: No aneurysm. ASCITES: None. OTHER FINDINGS: None. IMPRESSION: No evidence of pancreatic mass.
[2017-11-22] MEDS: Sodium Chloride 0.9% 1,000 ML IV SCH ×2 (10:46→12:09)
[2017-11-22] MEDS: Cholecalciferol 1,000 INTLU TAB PO SCH (11:04)
[2017-11-22] MEDS: Vancomycin 25 MG/ML PO SCH ×3 (11:08→22:19)
[2017-11-22 13:16] VITALS: PULSE 114
[2017-11-22] MEDS ORDERED: Digoxin 125 mcg (0.125 mg) Tab PO SCH (14:00)
[2017-11-22] MEDS ORDERED: Sodium Chloride 0.9% 250 ML IV STA (16:46)
--- NOTE | 2017-11-22 17:09 | CP.PCM.PN ---
<Sahara Fields - Last Filed: 11/22/17 17:06> Subjective - Date & Time of Evaluation Date of Evaluation: 11/22/17 Time of Evaluation: 10:20 - Subjective Subjective: Seen and examined at the bedside earlier today, chart reviewed. Patient went for MRCP this a.m., report reviewed, small amount of fluid surrounding gallbladder, no wall thickening and no gallstones, significance of finding is uncertain. No evidence of pancreatic mass, nodule seen on CT likely represent normal pancreatic tissue, no ductal dilatation or cyst formation. patient reports diarrhea is slowly improving, less loose, since started eating solid food. Stool for C. difficile negative. Denies nausea, vomiting, or abdominal pain. Objective - Vital Signs/Intake and Output Vital Signs (last 24 hours): Temp Pulse Resp BP Pulse Ox 98.8 F 114 H 20 114/77 96 11/22/17 09:00 11/22/17 13:13 11/22/17 12:00 11/22/17 13:13 11/22/17 09:00 Intake and Output: 11/22/17 11/22/17 06:59 18:59 Intake Total 720 Output Total 0 Balance 720 - Medications Medications: Current Medications Acetaminophen (Tylenol 325mg Tab) 650 mg PO Q4H PRN PRN Reason: Pain, Mild (1-3) Apixaban (Eliquis) 2.5 mg PO BID [facility] PRN Reason: Protocol Last Admin: 11/22/17 11:04 Dose: 2.5 mg Atenolol (Tenormin) 25 mg PO DAILY [facility] Last Admin: 11/22/17 11:04 Dose: 25 mg Atorvastatin Calcium (Lipitor) 10 mg PO DIN [facility] Last Admin: 11/21/17 18:07 Dose: 10 mg Cholecalciferol (Vitamin D) 2,000 intlu PO DAILY [facility] Last Admin: 11/22/17 11:04 Dose: 2,000 intlu Digoxin (Lanoxin) 0.125 mg PO 1400 [facility] Last Admin: 11/22/17 13:14 Dose: 0.125 mg Doxycycline Hyclate (Doryx) 100 mg PO Q12 [facility] PRN Reason: Protocol Last Admin: 11/22/17 11:02 Dose: 100 mg Famotidine (Pepcid) 20 mg PO BID [facility] Last Admin: 11/22/17 11:04 Dose: 20 mg Glipizide (Glucotrol) 10 mg PO ACB [facility] Last Admin: 11/22/17 08:44 Dose: 10 mg Guaifenesin/Dextromethorphan (Robitussin Dm) 5 ml PO Q4H PRN PRN Reason: Cough Last Admin: 11/20/17 11:47 Dose: 5 ml Sodium Chloride (Sodium Chloride 0.9%) 1,000 mls @ 100 mls/hr IV .Q10H [facility] Last Admin: 11/22/17 12:09 Dose: 100 mls/hr Sodium Chloride (Sodium Chloride 0.9%) 250 mls @ 999 mls/hr IV .Q16M STA Stop: 11/22/17 17:01 Insulin Human Regular (Humulin R Med) 0 units SC ACHS [facility] PRN Reason: Protocol Last Admin: 11/22/17 11:57 Dose: Not Given Levalbuterol HCl (Xopenex) 0.63 mg IH TIDRESP [facility] Last Admin: 11/22/17 13:47 Dose: 0.63 mg Lisinopril (Zestril) 10 mg PO DAILY [facility] Last Admin: 11/22/17 11:11 Dose: Not Given Vancomycin HCl (Vancocin 25 Mg/Ml (Oral Use)) 250 mg PO QID [facility] PRN Reason: Protocol Last Admin: 11/22/17 13:14 Dose: 250 mg Verapamil HCl (Calan Tab) 40 mg PO TID [facility] Last Admin: 11/22/17 13:13 Dose: 40 mg - Labs Labs: 11/22/17 05:30 PT 12.7 SECONDS (9.4-12.5) H 11/19/17 15:20 INR 1.16 (0.93-1.08) H 11/19/17 15:20 APTT 34.6 Seconds (25.1-36.5) 11/19/17 15:20 - Constitutional Appears: No Acute Distress - Eye Exam Eye Exam: Normal appearance. absent: Scleral icterus - ENT Exam ENT Exam: Mucous Membranes Moist - Respiratory Exam Respiratory Exam: NORMAL BREATHING PATTERN. absent: Respiratory Distress - Cardiovascular Exam Cardiovascular Exam: +S1, +S2 - GI/Abdominal Exam GI & Abdominal Exam: Soft, Normal Bowel Sounds. absent: Guarding, Tenderness, Rebound - Extremities Exam Extremities Exam: Calf Tenderness. absent: Pedal Edema - Neurological Exam Neurological Exam: Alert, Awake, Oriented x3 - Skin Skin Exam: Dry, Warm Assessment and Plan - Assessment and Plan (Free Text) Assessment: Assessment: Chest pain status post stress test,positive stress with reversible ischemia New-onset atrial fibrillation, on Eliquis Acute pancreatitis, unknown etiology,differentials to Consider is medication- induced, alcohol on CT found to have a pancreatic tail nodule, normal amylase/ lipase level, MRCP negative for pancreatic mass likely pancreatic tissue Left lower lobe irregular nodule r/o malignancy Renal insufficiency Uee-ossuhbw-qwjwffijs diabetes Hypertension Hyperlipidemia Plan: On oral antibiotics On oral vancomycin Continue GI prophylaxis on Pepcid On Eliquis as per cardiology On discharge patient has previous scheduled EGD/colon with Dr. Varma on December 05, 2017, for further evaluation can consider endoscopic ultrasound. Seen and discussed with Dr. Healy. <Yung Healy V - Last Filed: 11/22/17 22:19> Objective - Vital Signs/Intake and Output Vital Signs (last 24 hours): Temp Pulse Resp BP Pulse Ox 97.2 F L 114 H 16 64/40 L 93 L 11/22/17 16:00 11/22/17 18:00 11/22/17 16:00 11/22/17 16:00 11/22/17 16:00 - Medications Medications: Current Medications Acetaminophen (Tylenol 325mg Tab) 650 mg PO Q4H PRN PRN Reason: Pain, Mild (1-3) Apixaban (Eliquis) 2.5 mg PO BID [facility] PRN Reason: Protocol Last Admin: 11/22/17 17:22 Dose: 2.5 mg Atenolol (Tenormin) 25 mg PO DAILY [facility] Last Admin: 11/22/17 11:04 Dose: 25 mg Atorvastatin Calcium (Lipitor) 10 mg PO DIN [facility] Last Admin: 11/22/17 17:21 Dose: 10 mg Cholecalciferol (Vitamin D) 2,000 intlu PO DAILY [facility] Last Admin: 11/22/17 11:04 Dose: 2,000 intlu Digoxin (Lanoxin) 0.125 mg PO 1400 [facility] Last Admin: 11/22/17 13:14 Dose: 0.125 mg Doxycycline Hyclate (Doryx) 100 mg PO Q12 [facility] PRN Reason: Protocol Last Admin: 11/22/17 11:02 Dose: 100 mg Famotidine (Pepcid) 20 mg PO BID [facility] Last Admin: 11/22/17 11:04 Dose: 20 mg Glipizide (Glucotrol) 10 mg PO ACB [facility] Last Admin: 11/22/17 08:44 Dose: 10 mg Guaifenesin/Dextromethorphan (Robitussin Dm) 5 ml PO Q4H PRN PRN Reason: Cough Last Admin: 11/20/17 11:47 Dose: 5 ml Sodium Chloride (Sodium Chloride 0.9%) 1,000 mls @ 100 mls/hr IV .Q10H [facility] Last Admin: 11/22/17 12:09 Dose: 100 mls/hr Insulin Human Regular (Humulin R Med) 0 units SC ACHS [facility] PRN Reason: Protocol Last Admin: 11/22/17 21:52 Dose: Not Given Levalbuterol HCl (Xopenex) 0.63 mg IH TIDRESP [facility] Last Admin: 11/22/17 20:44 Dose: 0.63 mg Lisinopril (Zestril) 10 mg PO DAILY [facility] Last Admin: 11/22/17 11:11 Dose: Not Given Vancomycin HCl (Vancocin 25 Mg/Ml (Oral Use)) 250 mg PO QID [facility] PRN Reason: Protocol Last Admin: 11/22/17 13:14 Dose: 250 mg Verapamil HCl (Calan Tab) 40 mg PO TID [facility] Last Admin: 11/22/17 13:13 Dose: 40 mg - Labs Labs: 11/22/17 05:30 PT 12.7 SECONDS (9.4-12.5) H 11/19/17 15:20 INR 1.16 (0.93-1.08) H 11/19/17 15:20 APTT 34.6 Seconds (25.1-36.5) 11/19/17 15:20 Attending/Attestation - Attestation I have personally seen and examined this patient.: Yes I have fully participated in the care of the patient.: Yes I have reviewed all pertinent clinical information, including history, physical exam and plan: Yes Notes (Text): This is an addendum to GI progress report dictated by Sahara Fields APN.The patient was seen and examined earlier. Medical records, lab studies, imagings were reviewed. Last 24 hours events reviewed. Agreed with the above treatment plan as outlined in Sahara Fields APN's notes the with the addition of the following Patient denies any abdominal pain diarrhea has improved Abdomen soft no tenderness MRI with MRCP done without contrast in view of the chronic kidney disease revealed no pancreatic mass. patient is tolerating diet Patient is being followed by Dr. Varma, dietitian therapeutic. Patient may be followed up as an outpatient for further GI evaluation 11/22/17 22:17
--- NOTE | 2017-11-22 18:34 | PN ---
DATE: SUBJECTIVE: The patient is a 72-year-old black male, seen and examined, just had MRCP done. cough and congestion with shortness of breath, receiving IV antibiotics. PHYSICAL EXAMINATION: GENERAL: He is awake, alert, oriented, and able to communicate at this time. VITAL SIGNS: He is afebrile, pulse 114, respirations 20, and blood pressure 114/77. LUNGS: Bilateral soft crackles. Bilateral expiratory rhonchi. HEART: S1 and S2 audible. ABDOMEN: Soft, obese, and nontender. No rebound. No guarding. NEUROLOGIC: He is awake, alert, oriented, and communicative. LABORATORY DATA: Chemistry; sodium 133, potassium 4.7, chloride 106, CO2 of 20, BUN 47, creatinine 1.9, and blood sugar of 116. MRCP done earlier shows no evidence of pancreatic mass. His stress test is unremarkable. Echocardiogram, concentric LVH with ejection fraction of 35% to 40% and trace aortic regurgitation and moderate mitral regurgitation, and lujtpbex-vs-nbdive tricuspid regurgitation. ASSESSMENT: 1. New onset of atrial fibrillation. 2. Coronary artery disease. 3. Hypertension. 4. Iap-ravaexj-kthsjqubq diabetes. 5. Morbid obesity. 6. Left lower lung nodule. 7. Pancreatic mass on CT scan, but magnetic resonance cholangiopancreatography is unremarkable. PLAN: Discussed with Dr. Healy. The patient will follow with Dr. Rondon who will arrange for endoscopy and colonoscopy on 12/05/2017. Discussed with Dr. Roman, he might need cardiac cath. I will discuss with the patient's who is eager to talk to me and discuss . Vilma Calderon MD
--- NOTE | 2017-11-22 20:50 | PN ---
DATE: 11/22/2017 LOCATION: Room 378, bed 1. REASON FOR CONSULTATION: Chest pain, atrial flutter, hypertension, diabetes, high cholesterol, COPD, and obesity. SUBJECTIVE: Patient is lying flat in bed without chest pain, shortness of breath, or palpitation. Denies any dizziness. PHYSICAL EXAMINATION: VITAL SIGNS: Blood pressure 114/77, respirations 20. Pulse is still around 117 to 120 per minute, atrial flutter. Afebrile. HEENT: Head is normocephalic. Eyes; pupil normal, conjunctivae normal. Nose and throat normal. NECK: JVP low. Carotids equal. THORAX: AP diameter normal. LUNGS: Clear. CARDIOVASCULAR: S1 and S2. ABDOMEN: Soft. No tenderness. No organomegaly. Bowel sounds normal. EXTREMITIES: No clubbing. No cyanosis. LABORATORY DATA: WBC 9.4, hemoglobin 14.7, hematocrit 44.2, platelets 171. Sodium 133, potassium 4.7, BUN 47, creatinine 1.9. On admission, BUN was 38 and potassium 1.5 that was on 11/20/2017. On 11/21/2017, BUN went up to 49 and creatinine went up to 2.4. Random sugar 116. Sugar with lab morning blood work 89, calcium 8.7, phosphorus 4.0, magnesium 1.8. Echo showed normal sized LV, mild concentric left ventricular hypertrophy, LV systolic function moderately impaired with ejection fraction 35% to 40%, trace aortic regurgitation, mitral regurgitation moderate, ufydcyos-ob-nlmidk tricuspid regurgitation, RVSP 37mmHg, which is probably underestimating RVSP secondary to tricuspid regurgitation jet configuration. Right atrium is moderate to severely dilated. Left atrium is mild to moderately dilated. Right ventricle is moderately dilated. Stress test showed partially reversible apical distal inferior defect suspicious for ischemia. LV ejection fraction of 32%. DIAGNOSES: Chest pain, abnormal stress test suggestive of coronary artery disease, cardiomyopathy with left ventricular ejection fraction decreased, chronic obstructive pulmonary disease, hypertension, diabetes, high cholesterol, renal dysfunction, and morbid obesity. PLAN: Patient's heart rate is still 117 to 120. We will give digoxin 0.125 p.o. starting today. Patient received 2 IV doses of digoxin yesterday. We will give another dose of atenolol 25 mg today, already received 25 mg this morning. We will increase IV fluid normal saline to 100 mL an hour and repeat labs and digoxin level in the morning. Patient's Eliquis dose was decreased to 2.[address] Bui because of high BUN and creatinine. Patient is also getting verapamil 40 mg t.i.d., glipizide 10 mg a.c.b., Lipitor 10 mg daily, Pepcid 20 b.i.d., vancomycin 250 mg p.o. q.i.d. Lisinopril put on hold because of high BUN and creatinine. Patient will need cath, but first we have to stabilize the renal function. We will continue to follow with you. Ceferino Roman MD
[2017-11-23] MEDS: Sodium Chloride 0.9% 1,000 ML IV SCH (03:12)
[2017-11-23 07:54] LABS: ALB/GLOB RATIO 0.9 (1.1-1.8); ALBUMIN 3.4 g/dL (3.0-4.8); CALCIUM 8.3 mg/dL (8.4-10.5); MAGNESIUM 1.9 mg/dL (1.7-2.2)
[2017-11-23] MEDS ORDERED: Dextrose 50% SYRINGE Inj (50 ml) IVP ONE (07:54)
[2017-11-23] MEDS: Levalbuterol 0.63 MG/3 ML Inhal Soln UD IH SCH ×3 (07:54→20:01)
[2017-11-23] MEDS ORDERED: Dextrose 50% SYRINGE Inj (50 ml) ONE (07:55)
[2017-11-23 09:13] LABS: BASO # 0.01 K/mm3 (0.0-2.0); BASO % 0.1 % (0.0-3.0); GRAN # 9.96 (1.4-6.5); GRAN % 70.5 % (50.0-68.0); LYMPH # 1.8 (1.2-3.4); LYMPH % 12.4 % (22.0-35.0); MEAN CELL VOLUME 96.8 fl (80.0-105.0); MEAN CORPUSCULAR HEMOGLOBIN 32.5 pg (25.0-35.0); MEAN CORPUSCULAR HGB CONC 33.6 g/dl (31.0-37.0); MEAN PLATELET VOLUME 11.4 fl (7.0-11.0); MONO # 2.4 (0.1-0.6); WHITE BLOOD COUNT 14.1 10^3/ul (4.5-11.0)
[2017-11-23] MEDS ORDERED: Sod Polystyrene Sulf 15 gm/60 ml Susp PO ONE ×2 (09:57→23:45)
--- NOTE | 2017-11-23 10:47 | PQF RENAL ---
This form is a permanent part of the medical record Dr. Calderon, Patient with hx CKD. BUN and creatinine noted to be rising since admission. Please specify stage of CKD. Clarification of your documentation is requested to better reflect the severity of illness and intensity of treatment of your patient. Indicators present [] Oliguria/anuria [x] Edema/weight gain [] Hyponatremia [] Confusion/mental status changes [x] Increased Blood Urea Nitrogen/Creatinine [] Increased Potassium/Decreased potassium [] Anemia (male <13.5, female <12.0) [] Proteinuria [] Metabolic Acidosis OR Alkalosis [] Hypotension/shock [x] Decreased GFR [] Other: [] Location in the medical record that reflects the above clinical findings: PHYSICIAN'S RESPONSE Based on your medical judgment of the clinical indicators outlined above, are you treating this patient for a known or suspected: [] Acute Renal Failure [] Acute Kidney Injury [] Azotemia/prerenal azotemia [] Chronic kidney disease Stage I [] Stage II [] Stage III [] Stage IV [] [] Other condition/diagnosis:[] [] If Unable to Determine, please check the box, sign and date. Present On Admission (POA) Indicator: [] Present at the time of admission [] Not present at the time of admission [] Clinically Undetermined In responding to this query, please exercise your independent professional judgment. The fact that a question is asked does not imply that any particular answer is desired or expected. Thank you for your clarification on this documentation. 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
[2017-11-23] MEDS: Vancomycin 25 MG/ML PO SCH (10:51)
[2017-11-23] MEDS: Cholecalciferol 1,000 INTLU TAB PO SCH (10:51)
--- NOTE | 2017-11-23 11:57 | CP.PCM.PN ---
<Sahara Fields - Last Filed: 11/23/17 11:55> Subjective - Date & Time of Evaluation Date of Evaluation: 11/23/17 Time of Evaluation: 10:05 - Subjective Subjective: S&E at bedside, chart reviewed, patient had episode of hypotension yesterday. Patient with no complaints, BM improving. No N/V or abdominal pain, tolerating oral intake. Denies SOB or chest pain. Objective - Vital Signs/Intake and Output Vital Signs (last 24 hours): Temp Pulse Resp BP Pulse Ox 97.4 F L 108 H 19 120/91 H 95 11/23/17 06:00 11/23/17 06:00 11/23/17 06:00 11/23/17 06:00 11/23/17 06:00 Intake and Output: 11/23/17 11/23/17 06:59 18:59 Intake Total 2560 Output Total 300 Balance 2260 - Medications Medications: Current Medications Acetaminophen (Tylenol 325mg Tab) 650 mg PO Q4H PRN PRN Reason: Pain, Mild (1-3) Apixaban (Eliquis) 2.5 mg PO BID [facility] PRN Reason: Protocol Last Admin: 11/23/17 10:52 Dose: 2.5 mg Atorvastatin Calcium (Lipitor) 10 mg PO DIN [facility] Last Admin: 11/22/17 17:21 Dose: 10 mg Cholecalciferol (Vitamin D) 2,000 intlu PO DAILY [facility] Last Admin: 11/23/17 10:51 Dose: 2,000 intlu Digoxin (Lanoxin) 0.125 mg PO 1400 [facility] Last Admin: 11/22/17 13:14 Dose: 0.125 mg Doxycycline Hyclate (Doryx) 100 mg PO Q12 [facility] PRN Reason: Protocol Last Admin: 11/23/17 10:52 Dose: 100 mg Famotidine (Pepcid) 20 mg PO BID [facility] Last Admin: 11/23/17 10:51 Dose: 20 mg Glipizide (Glucotrol) 10 mg PO ACB [facility] Last Admin: 11/23/17 10:51 Dose: 10 mg Guaifenesin/Dextromethorphan (Robitussin Dm) 5 ml PO Q4H PRN PRN Reason: Cough Last Admin: 11/20/17 11:47 Dose: 5 ml Sodium Chloride (Sodium Chloride 0.9%) 1,000 mls @ 100 mls/hr IV .Q10H [facility] Last Admin: 11/23/17 03:12 Dose: 100 mls/hr Insulin Human Regular (Humulin R Med) 0 units SC ACHS [facility] PRN Reason: Protocol Last Admin: 11/22/17 21:52 Dose: Not Given Levalbuterol HCl (Xopenex) 0.63 mg IH TIDRESP [facility] Last Admin: 11/23/17 07:54 Dose: 0.63 mg Lisinopril (Zestril) 10 mg PO DAILY [facility] Last Admin: 11/22/17 11:11 Dose: Not Given Propranolol HCl (Inderal) 20 mg PO TID [facility] Vancomycin HCl (Vancocin 25 Mg/Ml (Oral Use)) 250 mg PO QID [facility] PRN Reason: Protocol Last Admin: 11/22/17 22:19 Dose: 250 mg Verapamil HCl (Calan Tab) 40 mg PO TID [facility] Last Admin: 11/22/17 13:13 Dose: 40 mg - Labs Labs: 11/23/17 07:30 11/23/17 09:25 PT 12.7 SECONDS (9.4-12.5) H 11/19/17 15:20 INR 1.16 (0.93-1.08) H 11/19/17 15:20 APTT 34.6 Seconds (25.1-36.5) 11/19/17 15:20 - Constitutional Appears: No Acute Distress - Eye Exam Eye Exam: Normal appearance. absent: Scleral icterus - ENT Exam ENT Exam: Mucous Membranes Moist - Neck Exam Neck Exam: Normal Inspection - Respiratory Exam Respiratory Exam: NORMAL BREATHING PATTERN. absent: Respiratory Distress - Cardiovascular Exam Cardiovascular Exam: +S1, +S2 - GI/Abdominal Exam GI & Abdominal Exam: Soft, Normal Bowel Sounds. absent: Guarding, Rebound - Extremities Exam Extremities Exam: absent: Calf Tenderness, Pedal Edema - Neurological Exam Neurological Exam: Alert, Awake, Oriented x3 - Skin Skin Exam: Dry, Warm Assessment and Plan - Assessment and Plan (Free Text) Assessment: Assessment: Elevated LFT, may be secondary to low flow state pt was hypotensive yesterday, other differential to consider is medication induced, pt jsut had mri/mrcp no gallstones of CBD dilitaion. Chest pain status post stress test,positive stress with reversible ischemia New-onset atrial fibrillation, on Eliquis Acute pancreatitis, unknown etiology,differentials to Consider is medication- induced, alcohol on CT found to have a pancreatic tail nodule, normal amylase/ lipase level, MRCP negative for pancreatic mass likely pancreatic tissue Left lower lobe irregular nodule r/o malignancy Renal insufficiency Not-qirrxlc-quvzyaunb diabetes Hypertension Hyperlipidemia Plan: check LDH monitor LFT On oral antibiotics On oral vancomycin Continue GI prophylaxis on Pepcid On Eliquis as per cardiology On discharge patient has previous scheduled EGD/colon with Dr. Winchester on December 05, 2017, discuss finding of MRCP/MRI with patient, advise FU w/ Dr. Winchester and upon discharge obtain copies of film and report. Also recommended to notify that now on Eliquis. Seen and discussed with Dr. Healy. <Yung Healy V - Last Filed: 11/24/17 00:23> Objective - Vital Signs/Intake and Output Vital Signs (last 24 hours): Temp Pulse Resp BP Pulse Ox 97.1 F L 113 H 19 131/92 H 95 11/23/17 16:00 11/23/17 20:10 11/23/17 16:00 11/23/17 20:10 11/23/17 06:00 - Medications Medications: Current Medications Acetaminophen (Tylenol 325mg Tab) 650 mg PO Q4H PRN PRN Reason: Pain, Mild (1-3) Apixaban (Eliquis) 2.5 mg PO BID [facility] PRN Reason: Protocol Last Admin: 11/23/17 18:05 Dose: 2.5 mg Atorvastatin Calcium (Lipitor) 10 mg PO DIN [facility] Last Admin: 11/22/17 17:21 Dose: 10 mg Cholecalciferol (Vitamin D) 2,000 intlu PO DAILY [facility] Last Admin: 11/23/17 10:51 Dose: 2,000 intlu Digoxin (Lanoxin) 0.125 mg PO 1400 [facility] Last Admin: 11/22/17 13:14 Dose: 0.125 mg Doxycycline Hyclate (Doryx) 100 mg PO Q12 [facility] PRN Reason: Protocol Last Admin: 11/23/17 22:16 Dose: 100 mg Famotidine (Pepcid) 20 mg PO BID [facility] Last Admin: 11/23/17 18:05 Dose: 20 mg Glipizide (Glucotrol) 10 mg PO ACB [facility] Last Admin: 11/23/17 10:51 Dose: 10 mg Guaifenesin/Dextromethorphan (Robitussin Dm) 5 ml PO Q4H PRN PRN Reason: Cough Last Admin: 11/20/17 11:47 Dose: 5 ml Sodium Chloride (Sodium Chloride 0.9%) 1,000 mls @ 100 mls/hr IV .Q10H [facility] Last Admin: 11/23/17 03:12 Dose: 100 mls/hr Insulin Human Regular (Humulin R Med) 0 units SC ACHS [facility] PRN Reason: Protocol Last Admin: 11/23/17 22:10 Dose: Not Given Levalbuterol HCl (Xopenex) 0.63 mg IH TIDRESP [facility] Last Admin: 11/23/17 20:01 Dose: 0.63 mg Lisinopril (Zestril) 10 mg PO DAILY [facility] Last Admin: 11/22/17 11:11 Dose: Not Given Propranolol HCl (Inderal) 20 mg PO TID [facility] Last Admin: 11/23/17 19:42 Dose: 20 mg Verapamil HCl (Calan Tab) 40 mg PO TID [facility] Last Admin: 11/23/17 20:10 Dose: 40 mg - Labs Labs: 11/23/17 07:30 11/23/17 09:25 PT 12.7 SECONDS (9.4-12.5) H 11/19/17 15:20 INR 1.16 (0.93-1.08) H 11/19/17 15:20 APTT 34.6 Seconds (25.1-36.5) 11/19/17 15:20 Attending/Attestation - Attestation I have personally seen and examined this patient.: Yes I have fully participated in the care of the patient.: Yes I have reviewed all pertinent clinical information, including history, physical exam and plan: Yes Notes (Text): This is an addendum to GI progress report dictated by Sahara Fields APN.The patient was seen and examined earlier. Medical records, lab studies, imagings were reviewed. Last 24 hours events reviewed. Agreed with the above treatment plan as outlined in Sahara Fields APN's notes the with the addition of the following discussed with the patient at length On examination abdomen soft no tenderness MRI findings discussed. Patient prefers to have follow-up with Dr. Varma as an outpatient for GI workup. Agrees to get Copies of these reports for follow-up 11/24/17 00:23
--- NOTE | 2017-11-23 14:55 | PN ---
DATE: SUBJECTIVE: The patient is a 72-year-old seen and examined, sitting in a chair, seems to be comfortable, still has shortness of breath with cough and congestion. No abdominal pain. No nausea or vomiting, no diarrhea. OBJECTIVE: VITAL SIGNS: He is afebrile, pulse 108, respirations 19, and blood pressure 120/91. LUNGS: Bilateral fair airflow. Few soft crackles bilaterally. HEART: S1 and S2 audible. ABDOMEN: Soft, obese, and nontender. No rebound, no guarding. NEUROLOGIC: The patient is awake and alert. Able to communicate. EXTREMITIES: Bilateral leg +1 edema. LABORATORY DATA: WBC 14.1, hemoglobin 13, hematocrit 38, and platelets 161. Chemistry, sodium 136, potassium 6.0, chloride 110, CO2 17, BUN 54, creatinine 3.1, blood sugar of 122, AST 287, ALT 231, alkaline phosphatase 307, and LDH is 1247. His stool for C. diff is negative. The patient's MRCP was done because of questionable mass in the pancreas that is negative. He has abnormal stress test and CT scan of the chest showed left lower lung nodule about 1 cm, irregular. ASSESSMENT: 1. Abnormal stress test, rule out underlying coronary ischemia. 2. Uhdoq-ui-wlemlxd renal failure. 3. Tiv-rdfoufj-zlpefuwpf diabetes. 4. Morbid obesity. 5. Left lower lung nodule questionable malignancy. 6. Abnormal LFTs. 7. New onset of atrial fibrillation. PLAN: Currently, the patient is on verapamil. He has been started on Eliquis. He is on doxycycline. We will continue him on Eliquis. He is on glipizide, but blood sugar is being monitored. Since stool for C. diff is negative, I will discontinue his p.o. vancomycin. We will discontinue his lisinopril. Continue him on IV fluids. So plan at this point is over the weekend, he will be hydrated. If his creatinine is better, he will undergo cardiac catheterization. I spoke to his , Zulma, at length. He needs endoscopy and colonoscopy as outpatient plus he has left lower lung nodule that needs to be investigated further. Once his heart issue gets settle down and his kidney function improves, he is going to need biopsy of that mass. The patient's and himself understand that these issues will need to be pursued. 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 He will need endoscopy and colonoscopy and he need biopsy of left lower lung nodule. Vilma Calderon MD
[2017-11-23] MEDS: Insulin Reg-MEDIUM-Coverage SC SCH ×4 (19:38→22:10)
--- NOTE | 2017-11-23 19:43 | PN ---
DATE: 11/23/2017 LOCATION: The patient in room 378, bed 1. REASON FOR CONSULTATION: Followup chest pain, atrial flutter, hypertension, diabetes, high cholesterol, COPD and obesity. On echo, cardiomyopathy, stress test positive. SUBJECTIVE: The patient sitting in bed without any chest pain, shortness of breath or palpitation. PHYSICAL EXAMINATION VITAL SIGNS: Blood pressure 120/91, respirations 19, pulse 108 and temperature 97.4. HEENT: Head is normocephalic. Eyes: Pupils normal. Conjunctivae normal. NECK: JVP low. Carotids are equal. THORAX: AP diameter normal. LUNGS: Clear. CARDIOVASCULAR: S1 and S2. ABDOMEN: Protuberant. No organomegaly. EXTREMITIES: No clubbing. No cyanosis. LABORATORY DATA: WBC 14.1, hemoglobin 13.0, hematocrit 38.7 and platelets 161. Sodium 136, potassium 6.0, repeat potassium is 5.2, BUN 54, creatinine 3.1 and random sugar 122, repeat 173. AST 287, ALT 231, alkaline phosphatase 307, total protein and albumin normal. Echo showed LV ejection fraction of 35 to 40%. Echo was done on 11/22/2017, RSVP 37 mmHg. RVSP may be underestimating because of secondary to tricuspid regurgitation jet configuration, right atrium moderate to severely dilated, left atrium mild to moderately dilated, right ventricle moderately dilated. Stress test was done on 11/21/2017 and showed ischemic changes and LV ejection fraction of 32%. DIAGNOSES: Chest pain, abnormal stress test suggestive of coronary artery disease, cardiomyopathy, left ventricular ejection fraction decrease, chronic obstructive pulmonary disease, hypertension, diabetes, high cholesterol, renal dysfunction, morbid obesity, hyperkalemia. Yesterday BUN was 47, creatinine 1.9 and today BUN is 54 and creatinine 3.1. Although, yesterday we increased IV fluid. The patient on verapamil 40 t.i.d., Doryx 100 mg p.o. q. 12 hours, Eliquis 2.5 b.i.d., glipizide 10 daily, we are going to stop atenolol and add Inderal 20 mg t.i.d. to control the heart rate, digoxin 0.125 p.o. daily, atorvastatin 10 mg daily, the patient is getting 100 mL of normal saline IV fluid, lisinopril has been on hold because of high BUN. We will repeat labs in the morning. The patient needs cardiac catheterization, but till kidney function improve, we cannot do cardiac catheterization; otherwise, the patient will end up on dialysis. The patient is asymptomatic from chest pain, so we will repeat the labs in the morning, and we will follow and continue IV fluids. Ceferino Roman MD
[2017-11-24] MEDS: Sodium Chloride 0.9% 1,000 ML IV SCH ×4 (03:46→23:45)
[2017-11-24 08:00] LABS: ALB/GLOB RATIO 0.8 (1.1-1.8); ALBUMIN 3.3 g/dL (3.0-4.8); CALCIUM 8.7 mg/dL (8.4-10.5); MAGNESIUM 1.7 mg/dL (1.7-2.2)
[2017-11-24] MEDS: Insulin Reg-MEDIUM-Coverage SC SCH ×4 (08:00→22:44)
[2017-11-24] MEDS: Levalbuterol 0.63 MG/3 ML Inhal Soln UD IH SCH ×3 (08:00→18:00)
[2017-11-24] MEDS ORDERED: Sod Polystyrene Sulf 15 gm/60 ml Susp PO ONE ×2 (08:12→12:00)
[2017-11-24] MEDS ORDERED: Acetylcysteine 20% Inhal Sol (30ml) PO SCH (10:00)
[2017-11-24] MEDS: Cholecalciferol 1,000 INTLU TAB PO SCH (11:55)
--- NOTE | 2017-11-24 12:04 | PN ---
DATE: 11/24/2017 SUBJECTIVE: The patient has no complaints of any chest pain, shortness of breath, or headaches. PHYSICAL EXAMINATION: VITAL SIGNS: Temperature is 98, pulse of 113, blood pressure is 91/65, and respirations are 20. GENERAL: The patient is lying in bed, flat, comfortable. HEENT: No oral lesion. Anicteric sclerae. Moist mucosa. NECK: No JVD, adenopathy, or thyromegaly. CARDIOVASCULAR: S1 and S2, regular. No murmurs, rubs, or gallops. LUNGS: Clear to auscultation bilaterally. No wheeze, rales, or rhonchi. ABDOMEN: Bowel sounds are positive, soft, nontender and nondistended. EXTREMITIES: no cyanosis, clubbing or edema. LABORATORY DATA: White count of 14.1, hemoglobin is 13, potassium is 5.8, and creatinine is 2.6. ASSESSMENT: 1. Hyperkalemia. 2. Acute kidney injury. 3. Transaminitis. 4. Hypoglycemia. 5. Diabetes type 2. 6. Morbid obesity with a body mass index of 38. 7. Left lung nodule. 8. Atrial fibrillation, new onset. PLAN: The patient is currently comfortable. Potassium is elevated. We will need to treat his hyperkalemia. This is most likely from the acute kidney injury. I have discontinued his glyburide because of hypoglycemia. The patient is on verapamil for the atrial fibrillation. He is on Eliquis for the atrial fibrillation as well. The patient's glipizide has been placed on hold. The patient will need another dose of Kayexalate. The patient is on lisinopril, that has also been placed on hold. The patient is on the heart-healthy diet. We will continue to follow the patient closely. We will repeat the patient's blood work tomorrow. The patient is being followed by Cardiology, Dr. Roman. Chandler Hercules MD
--- NOTE | 2017-11-24 19:27 | PN ---
DATE: 11/24/2017 REASON FOR CONSULTATION AND FOLLOW UP: Chest pain, atrial flutter, hypertension, diabetes, hyperlipidemia, positive stress test, cardiomyopathy. SUBJECTIVE: The patient denies any chest pain, shortness of breath, any palpitation. PHYSICAL EXAMINATION: VITAL SIGNS: Temperature afebrile, heart rate 102, and blood pressure 129/80. HEENT: PERRLA intact. NECK: Supple. No carotid bruits or thyromegaly. CHEST: Clear to auscultation. HEART: S1 and S2, regular. ABDOMEN: Soft. EXTREMITIES: Clubbing and cyanosis negative. LABORATORY DATA: WBC 14.2, hemoglobin 13.3, hematocrit 38.7, and platelet count 161. Chemistry shows sodium 130, potassium 5.0, chloride of 113, carbon dioxide 18, anion gap of 14, BUN 50 and creatinine 2.6. IMPRESSION: 1. Acute kidney injury on chronic renal insufficiency. The patient came in with creatinine of 1.4, GFR is 50 mL an hour and now it is 25 to 30 mL an hour. 2. Hyperkalemia. 3. Low blood sugar. 4. Renal insufficiency. 5. Elevated transaminases. 6. The patient had stress test done that showed abnormal myocardial perfusion study, ejection fraction 32, partial reversible inferior defect suggestive of ischemia. The patient had echocardiography on 11/21/2017 that shows mild concentric left ventricular ejection 35 to 42, trace aortic regurgitation, moderate mitral regurgitation, moderate to severe tricuspid regurgitation, left atrium is moderately dilated, right is moderate to severe dilated. RECOMMENDATION: Continue gentle hydration, Mucomyst, cardiac catheterization on Sunday. We will monitor renal function closely. Discontinue Eliquis for preparation for cardiac catheterization. Ceferino Bui MD
--- NOTE | 2017-11-24 19:41 | PN ---
DATE: 11/24/2017 SUBJECTIVE: This patient was seen and evaluated earlier today. Patient is comfortable. Tolerating the diet. PHYSICAL EXAMINATION VITAL SIGNS: Temperature is 98.5, pulse is 93, blood pressure is 140/97. HEENT: Atraumatic, anicteric. NECK: Supple. HEART: S1 and S2 heard. LUNGS: Bilateral air entry present. ABDOMEN: Soft. There is no tenderness. LABORATORY DATA: Hemoglobin 13, hematocrit 38.7, WBC 14.1, platelets 161. Sodium 139, potassium 5.8. BUN 20, creatinine 2.6. Sugar is 49. IMPRESSION: This 72-year-old patient admitted with multiple problems. Patient does have positive stress test now. Awaiting for cardiac cath and CT also showed questionable pancreatic lesion but subsequent MRI did not show any focal pancreatic lesion, history of ETOH use in the past. Patient is due to see as an outpatient, Dr. Rondon, Route Service Representative. Patient also has chronic kidney disease. Patient has been on Eliquis now. He has loose bowel movements initially when he came in and has empirically been treated with p.o. vancomycin with improvement. Patient is presently off p.o. vancomycin. Patient is on doxycycline. Patient does have an elevated LFTs and patient's AST is 118, ALT is 157, and alkaline phosphatase is 259. Patient's MRI and CT findings reviewed. We will also request for baseline hepatitis profile. The elevation of LFT could be from drug induced Thank you very much for allowing us to participate in the care of the patient. Yung Healy MD [facility]
[2017-11-24] MEDS: Acetylcysteine 20% Inhal Soln (4ml) PO SCH (19:48)
[2017-11-25] MEDS: Sodium Chloride 0.9% 1,000 ML IV SCH (01:47)
[2017-11-25] MEDS: Insulin Reg-MEDIUM-Coverage SC SCH ×4 (07:50→22:02)
[2017-11-25] MEDS: Levalbuterol 0.63 MG/3 ML Inhal Soln UD IH SCH ×3 (08:39→21:08)
[2017-11-25 09:51] LABS: ALB/GLOB RATIO 0.8 (1.1-1.8); ALBUMIN 3.3 g/dL (3.0-4.8); CALCIUM 8.7 mg/dL (8.4-10.5); MAGNESIUM 1.5 mg/dL (1.7-2.2)
[2017-11-25] MEDS ORDERED: Sod Polystyrene Sulf 15 gm/60 ml Susp PO ONE ×2 (10:51→20:19)
[2017-11-25] MEDS: Cholecalciferol 1,000 INTLU TAB PO SCH (11:10)
[2017-11-25] MEDS: Acetylcysteine 20% Inhal Soln (4ml) PO SCH ×2 (11:10→19:20)
[2017-11-25] MEDS: Aspirin 325 mg EC Tablets PO SCH (11:54)
--- NOTE | 2017-11-25 12:25 | PN ---
DATE: SUBJECTIVE: The patient has no complaints of any chest pain. No shortness of breath. No headache. PHYSICAL EXAMINATION VITAL SIGNS: Temperature is 98.3, pulse of 93, blood pressure is 116/81, and respirations are 20. GENERAL: The patient is lying in bed, flat, comfortable. HEENT: No oral lesion. Anicteric sclerae. Moist mucosa. NECK: No JVD, adenopathy, or thyromegaly. CARDIOVASCULAR: S1 and S2, regular. No murmurs, rubs, or gallops. LUNGS: Clear to auscultation bilaterally. No wheeze, rales, or rhonchi. ABDOMEN: Bowel sounds are positive, soft, nontender and nondistended. EXTREMITIES: No cyanosis, clubbing or edema. LABS: Pending from this morning. Fingerstick this morning was 58. ASSESSMENT: 1. Hypoglycemia, most likely secondary to glyburide. 2. Acute kidney injury. 3. Transaminitis. 4. Diabetes type 2. 5. Morbid obesity with a body mass index of 38. 6. Left lung nodule. 7. Atrial fibrillation, new onset. PLAN: The patient is currently comfortable. I did discontinue the patient's glyburide yesterday. The patient's sugars have been better. The patient is on doxycycline for antibiotics. He is receiving Lipitor for dyslipidemia. The patient is on IV fluids. I will discontinue the patient's IV fluid at this point. This was placed for the creatinine that was elevated. The patient is on lisinopril but has been placed on hold. Labs are pending for this morning. Chandler Hercules MD
[2017-11-25] MEDS: Dextrose 5%/0.9% NS 1,000 ML IV SCH (13:16)
--- NOTE | 2017-11-25 17:13 | PN ---
DATE: REASON FOR CONSULTATION AND FOLLOWUP: Chest pain, atrial flutter, hypertension, diabetes mellitus, hyperlipidemia, positive stress test, cardiomyopathy. SUBJECTIVE: The patient denies any chest pain, shortness of breath or any palpitations. The patient is not in apparent distress. PHYSICAL EXAMINATION: VITAL SIGNS: Temperature afebrile, heart rate 90, blood pressure 115/80. HEENT: PERRLA. Extraocular muscles intact. NECK: Supple. No carotid bruits or thyromegaly. CHEST: Clear to auscultation. HEART: S1 and S2, regular. ABDOMEN: Soft. EXTREMITIES: Clubbing and cyanosis negative. LABORATORY DATA: Blood workup as follows: WBC 14.9, hemoglobin 13, hematocrit 38.7, platelet count 161. Chemistry shows sodium 130, potassium 3.5, chloride 113, CO2 70, anion gap 15, BUN , creatinine 2.5. IMPRESSION: Acute kidney injury on chronic renal insufficiency. The patient came in with normal BUN and creatinine and now the creatinine has crept up to 2.5, hyperkalemia, positive stress test, diabetes mellitus, hypertension, hyperlipidemia, morbid obesity, multiple valvular abnormality as well in the left atrium, right atrium significantly large, not a candidate for transesophageal echocardiography/cardioversion, ejection fraction of 35%, moderate to severe tricuspid regurgitation. RECOMMENDATION: Start IV fluid tomorrow. Give Mucomyst. Continue verapamil. Hold Eliquis. We will start Plavix. Lisinopril is on hold because of hyperkalemia and acute kidney injury. Recommended to check BUN and creatinine tomorrow. If stable or trending down, we will do the cardiac catheterization; otherwise, we will hold. We will start IV fluid 100 mL an hour tomorrow morning at 6 o'clock. We will follow with you. We will start with aspirin and Plavix today. We will start normal saline at 100 mL an hour tomorrow at 5 a.m., and we will check the creatinine. If it is trending down, then we will do cardiac catheterization. If trending up, we will hold it. NPO after midnight. Sunday for cardiac catheterization. We will repeat lab in the morning. Continue Mucomyst. Continue hydration as ordered. Ceferino Bui MD [facility] # [id number]
[2017-11-25 19:10] LABS: CALCIUM 9.2 mg/dL (8.4-10.5)
[2017-11-25] MEDS: Magnesium Oxide 400 mg Tab UD PO SCH (19:22)
--- NOTE | 2017-11-25 21:33 | PN ---
DATE: 11/25/2017 SUBJECTIVE: This patient was seen and evaluated earlier today. Patient is comfortable. Planned for a cardiac cath tomorrow. PHYSICAL EXAMINATION: VITAL SIGNS: Temperature is 97.4, blood pressure is 145/83, respirations are 20 and O2 saturation is 97%. HEENT: Atraumatic and anicteric. NECK: Supple. HEART: S1 and S2 heard. LUNGS: Bilateral air entry present. ABDOMEN: Soft. There is no mass palpable. There is no tenderness. LABORATORY DATA: Sodium 139, potassium 6.5, creatinine is 2.5, BUN 15, AST is 99, ALT 147, and alkaline phosphatase 266. ASSESSMENT AND PLAN: This is a 72-year-old patient with diabetes mellitus, acute kidney injury on the top of chronic kidney disease, atrial fibrillation on Eliquis, noticed to have a questionable pancreatic lesion. Subsequently, MRI did not show any pancreatic lesion. The patient is due to have an outpatient GI evaluation regarding by the Polymerization Oven Operator Dr. Rondon. He already scheduled for an esophagogastroduodenoscopy and colonoscopy. The patient has elevated transaminases, the patient is on doxycycline. Possibility of drug induced and need to be considered the differential diagnosis in addition for elevated LFT. Patient is on doxycycline Thank you very much for allowing us to participate in the care of the patient. Yung Healy MD MTDDebra
[2017-11-26] MEDS ORDERED: Sodium Chloride 0.9% 1,000 ML IV SCH (05:00)
[2017-11-26 07:06] LABS: BASO # 0.02 K/mm3 (0.0-2.0); BASO % 0.2 % (0.0-3.0); EOS % 0.1 % (1.5-5.0); GRAN # 4.64 (1.4-6.5); GRAN % 54.3 % (50.0-68.0); HEMOGLOBIN 13.6 g/dL (14.0-18.0); LYMPH % 23.7 % (22.0-35.0); MEAN CELL VOLUME 98.3 fl (80.0-105.0); MEAN CORPUSCULAR HEMOGLOBIN 33.8 pg (25.0-35.0); MEAN CORPUSCULAR HGB CONC 34.4 g/dl (31.0-37.0); MEAN PLATELET VOLUME 10.3 fl (7.0-11.0); MONO # 1.9 (0.1-0.6); MONO % 21.7 % (1.0-6.0); PLATELET COUNT 199 10^3/uL (120.0-450.0); RBC 4.02 10^6/uL (3.5-6.1); RED CELL DISTRIBUTION WIDTH 15.1 % (11.5-14.5); WHITE BLOOD COUNT 8.6 10^3/ul (4.5-11.0)
[2017-11-26 07:45] LABS: ALB/GLOB RATIO 0.9 (1.1-1.8); ALBUMIN 3.4 g/dL (3.0-4.8); CALCIUM 9.4 mg/dL (8.4-10.5); MAGNESIUM 1.4 mg/dL (1.7-2.2)
--- NOTE | 2017-11-26 07:51 | PN ---
DATE: 11/26/2017 SUBJECTIVE: The patient has no complaints of any chest pain. No shortness of breath. No headaches. PHYSICAL EXAMINATION: VITAL SIGNS: Temperature is 98.3, pulse is 111, blood pressure is 137/87, respirations are 19. GENERAL: The patient is lying in bed, flat, comfortable. HEENT: No oral lesion. Anicteric sclerae. Moist mucosa. NECK: No JVD, adenopathy, or thyromegaly. CARDIOVASCULAR: S1 and S2, regular. No murmurs, rubs, or gallops. LUNGS: Clear to auscultation bilaterally. No wheeze, rales, or rhonchi. ABDOMEN: Bowel sounds are positive, soft, nontender and nondistended. EXTREMITIES: No cyanosis, clubbing or edema. LABORATORY DATA: The patient's last creatinine is 2.4 and potassium is 6.3. He has been on Kayexalate. ASSESSMENT: 1. Hyperkalemia. 2. Acute kidney injury. 3. Hypoglycemia secondary to glyburide/acute kidney injury. 4. Transaminitis. 5. Diabetes type 2. 6. Left lung nodule. 7. Atrial fibrillation, new onset. 8. Morbid obesity with a body mass index of 38. PLAN: He is currently comfortable. The patient is receiving verapamil for the atrial fibrillation. The patient is on aspirin daily. The patient is going to continue with atenolol. The patient is on magnesium replacement for one more day. He is on aspirin and Plavix. He is on IV fluids. Awaiting for a.m. labs today. The patient is scheduled for cardiac cath. I would hold off cardiac cath because of the elevated creatinine and the hyperkalemia until it is improved. Chandler Hercules MD
[2017-11-26] MEDS: Insulin Reg-MEDIUM-Coverage SC SCH ×3 (08:27→21:10)
[2017-11-26] MEDS: Levalbuterol 0.63 MG/3 ML Inhal Soln UD IH SCH ×2 (08:37→14:13)
[2017-11-26] MEDS: Dextrose 5%/0.9% NS 1,000 ML IV SCH (08:50)
[2017-11-26 09:00] LABS: LYMPHOCYTE 30 % (22.0-35.0); MONOCYTE 14 % (1.0-6.0); NEUTROPHIL 56 % (50.0-70.0)
[2017-11-26 09:01] LABS: LARGE PLATELETS PRESENT; PLATELET ESTIMATE NORMAL (NORMAL)
[2017-11-26] MEDS: Aspirin 325 mg EC Tablets PO SCH (09:31)
[2017-11-26] MEDS: Cholecalciferol 1,000 INTLU TAB PO SCH (09:32)
[2017-11-26] MEDS: Magnesium Oxide 400 mg Tab UD PO SCH ×2 (09:32→17:30)
[2017-11-26] MEDS ORDERED: Sodium Bicarbonate (8.4%) 50 Meq Syringe IVP ONE ×2 (10:29→10:33)
[2017-11-26] MEDS ORDERED: Acetylcysteine 20% Inhal Sol (30ml) ONE (10:30)
[2017-11-26] MEDS ORDERED: Lidocaine 2% Inj (20ml) ONE (13:15)
[2017-11-26] MEDS ORDERED: Midazolam 2 MG/2 ML VIAL ONE (13:15)
[2017-11-26] MEDS ORDERED: Iodixanol 320 mg/ml 150 ml Bottle IV ONE (13:16)
[2017-11-26] MEDS ORDERED: HEPARIN SODIUM/NS 2,000 ML IV ONE (13:16)
[2017-11-26] MEDS ORDERED: Magnesium Sulfate 2 GM in Sodium Chloride 0.9% 100 ML IVPB ONE (14:46)
[2017-11-26] MEDS: Milrinone 20mg/100ml D5W 100 ML IV PRN (15:57)
[2017-11-26 17:03] LABS: HEPATITIS B SURFACE AG NEGATIVE (NEGATIVE)
[2017-11-26 17:08] LABS: HEPATITIS A IGM NEGATIVE (NEGATIVE); HEPATITIS B CORE AB Negative (NEGATIVE)
[2017-11-26 17:20] LABS: HEPATITIS C ANTIBODY Negative (NEGATIVE)
[2017-11-26] MEDS: Acetylcysteine 20% Inhal Soln (4ml) PO SCH (17:29)
--- NOTE | 2017-11-26 18:35 | CARD ---
APPROVED REPORT Procedure(s) performed: Complete Heart Catheterization HISTORY The patient is a 72 year-old male with a history of : CHF, Multiple Valvular regurgitation, CMPm, abnormal Stress test Acute kidney injury on CKD. INDICATION The indication(s) include : positive stress test, dyspnea, valvular heart disease. CASE TECHNIQUE The patient was brought urgently to the Cardiac Catheterization Laboratory in a fasting state and was prepped and draped in a sterile manner. The right femoral groin was infiltrated with 2% Lidocaine subcutaneous anesthesia. A sheath was inserted into the right femoral artery without difficulty. Coronary angiography was performed using coronary diagnostic catheters. The left coronary system was accessed and visualized with a Diagnostic ,JL4 catheter. The right coronary system was accessed and visualized with a Diagnostic ,JR4 catheter. The left ventricle was accessed and visualized with a Pigtail catheter. Left ventricular/Aortic Valve gradient assessed on pullback. Left ventriculogram was performed in HARTMANN projection. A Right Heart Catheterization was performed with a 7 Fr. [place]-Sung catheter and pressure were recorded. A 7 sheath was inserted into the right femoral vein without difficulty. Coronary angiography was performed using coronary diagnostic catheters. Pre-demployment femoral angiogram was performed . Closure device was deployed with a 6 Fr MYNX without any complications. Hemostasis was obtained with manual pressure following sheath removal without any complications. The patient tolerated the procedure well and there were no complications associated with the procedure. Vessel Analysis The patient's coronary anatomy is right dominant. The left main coronary artery is a large size vessel without significant stenosis. The left main bifurcates to the left anterior descending and circumflex. The left anterior descending artery is a medium size vessel without significant stenosis. The first diagonal branch is a medium size vessel with intimal irregularities and without significant stenosis. The circumflex artery is a medium size vessel with diffuse calcification noted throughout this vessel and without significant stenosis. The first obtuse marginal branch is a small size vessel with diffuse calcification noted throughout this vessel and without significant stenosis. The second obtuse marginal branch is a medium size vessel with diffuse calcification noted throughout this vessel and without significant stenosis. The right coronary artery is a medium size vessel without significant stenosis. The right posterior descending artery is a medium size vessel with intimal irregularities and without significant stenosis. Left Ventricle The left ventricle is borderline in size with decreased contractility. Non-Ischemic cardiomyopathy. The left ventricular ejection fraction is estimated to be 35-40%. The left ventricular end diastolic pressure is 18 mmHg. There was no gradient across the aortic valve upon pullback. Right Heart Cath Findings The Right Atrial Pressure is 17 mmHg. The Right Ventricular Pressure is 45/17 mmHg. The Pulmonary Artery Pressure is 44/21 mmHg. mean of 28 The Pulmonary Catheter Wedge Pressure is 20. mmHg. PVR 2.3 Wood units. The cardiac output and index were assessed using thermo dilution. The Cardiac Output is 3.47 L/min. The Cardiac index is 1.62 L/min/m2. 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 RHC;RA-17,RV-45/17,PA-44/21 with a mean 28 mm of Hg. PCW-20, CO-3.42, CI-1.62, PVR-2.3 shirley unit Only 20 cc Contrast used Recommendations Aggressive Medical TherapyCardiac Risk Reduction Program Weight Loss Reduction Program Bicarb drip, Mucomysr, Monitor renal FX. Heart Failure therapy, DARRYL on Hold B/c of renal failure. Start Low dose Primacor for 24-48 hours. F/u seral echo to assess progression of valvular hreart Diz and Lv Fx, if EF remains less than 35% in next 3-6 months, may consider AICD. CC; Drs. Calderon/ Delisa.
--- NOTE | 2017-11-26 20:37 | PN ---
DATE: 11/26/2017 REASON FOR CONSULTATION AND FOLLOWUP: For chest pain, atrial flutter, hypertension, diabetes, hyperlipidemia, positive stress cardiomyopathy, status post cardiac catheterization, normal coronaries, elevated right side pressure, acute kidney injury. SUBJECTIVE: The patient denies any chest pain, shortness of breath, any palpitation. Not in apparent distress. Status post cardiac catheterization. PHYSICAL EXAMINATION: VITAL SIGNS: Temperature afebrile, heart rate 104, blood pressure 142/90. HEENT: PERRLA intact. NECK: Supple. No carotid bruits or thyromegaly. CHEST: Clear to auscultation. HEART: S1 and S2 regular. ABDOMEN: Soft. EXTREMITIES: Clubbing and cyanosis negative. LABORATORY DATA: Blood workup as follows: WBC 8.6, hemoglobin 13.6, hematocrit 39.5, platelet count 199. Chemistry shows sodium 145, potassium 4.5, chloride 114, carbon dioxide 21, anion gap of 16, BUN 46, creatinine 2.2, magnesium 1.4. ASSESSMENT AND PLAN: Hypomagnesemia, acute kidney injury, hyperkalemia, diabetes, hypertension, hyperlipidemia, multiple valvular abnormalities, stress test with abnormal ejection fraction 32%, anterior wall ischemia. Echo showed ejection fraction of 35% to 40%, moderate mitral regurgitation, moderate to severe tricuspid regurgitation. RV systolic pressure of 37. Underestimating trace aortic regurgitation. Stress test; 32%, partial reversible distal inferior defect suspicious for ischemia, status post cardiac catheterization, essentially normal coronaries, mild disease in obtuse marginal of 65%, cardiomyopathy, ejection fraction 35% to 40%, elevated right-sided pressure, acute kidney injury, only 20 mL contrast used. RECOMMENDATION: We will continue bicarb drip for 6 hours total. Start Primacor and start Eliquis from tomorrow afternoon. Continue verapamil and continue digoxin. We will follow with you. Repeat the blood workup in the morning. Thank you Dr. Hercules for providing me the opportunity in taking care of the patient, Laya Castillo. Continue Mucomyst and repeat SM-7 in the morning. We will give a gm of magnesium rider. We will repeat the mag phosphate tomorrow. Only 20 mL of contrast used. Ceferino Bui MD cc: Chandler Hercules MD
--- NOTE | 2017-11-27 01:41 | PN ---
DATE: 11/26/2017 SUBJECTIVE: This patient was seen and evaluated earlier today and the patient was due to go for cardiac cath at the time of his examination. PHYSICAL EXAMINATION: VITAL SIGNS: Temperature is 98.3, pulse is 106, and blood pressure is 136/75. HEENT: Atraumatic and anicteric. NECK: Supple. HEART: S1 and S2 heard. LUNGS: Bilateral air entry present. ABDOMEN: Soft. There is no tenderness. LABORATORY DATA: Hemoglobin 13.6, hematocrit 39.5, WBC 8.6, and platelets 199. BUN 46 and creatinine 2.2. Alkaline phosphatase 274, AST 128, and ALT 68. IMPRESSION AND PLAN: This 72-year-old patient with diabetes mellitus; acute kidney injury on the top of chronic kidney disease; history of atrial fibrillation, on Eliquis; and have a questionable pancreatic lesion. Repeat MRI did not show any lesion. The patient was found to have a positive stress test and he is scheduled for cardiac catheterization today. MRI done did not reveal any obvious focal pancreatic lesion. The patient clearly needs GI workup including endoscopy and colonoscopy. The patient has been scheduled for an outpatient evaluation. The patient was advised to follow up with his health manager and the timing of the procedure as per clinical course advised cardiac followup. Thank you very much for allowing us to participate in the care of the patient. Yung Healy MD [facility]
[2017-11-27] MEDS: Milrinone 20mg/100ml D5W 100 ML IV PRN ×2 (04:26→22:03)
[2017-11-27 06:42] LABS: ALB/GLOB RATIO 0.9 (1.1-1.8); ALBUMIN 3.6 g/dL (3.0-4.8); CALCIUM 9.4 mg/dL (8.4-10.5); MAGNESIUM 1.3 mg/dL (1.7-2.2)
[2017-11-27] MEDS: Insulin Reg-MEDIUM-Coverage SC SCH ×3 (08:39→17:36)
[2017-11-27] MEDS: Verapamil 180 mg ER Tab PO SCH (09:28)
[2017-11-27] MEDS: Magnesium Oxide 400 mg Tab UD PO SCH ×3 (09:29→17:57)
[2017-11-27] MEDS: Cholecalciferol 1,000 INTLU TAB PO SCH (09:29)
[2017-11-27] MEDS: Magnesium Sulfate 2 GM in Sodium Chloride 0.9% 100 ML IVPB SCH ×2 (10:53→14:32)
[2017-11-27] MEDS: Levalbuterol 0.63 MG/3 ML Inhal Soln UD IH SCH ×3 (11:10→19:26)
--- NOTE | 2017-11-27 12:27 | CP.PCM.PN ---
<Sahara Fields - Last Filed: 11/27/17 12:23> Subjective - Date & Time of Evaluation Date of Evaluation: 11/27/17 Time of Evaluation: 10:20 - Subjective Subjective: S&E at bedside, chart reviewed, had cardiac cath yesterday, found to have normal coronaries, report reviewed. Patient given kayexalate and now having BM, no reports of bleeding. No N/V or abdominal pain. No acute overnight events reported. Objective - Vital Signs/Intake and Output Vital Signs (last 24 hours): Temp Pulse Resp BP Pulse Ox 97.8 F 125 H 18 116/75 97 11/27/17 06:00 11/27/17 09:28 11/27/17 06:00 11/27/17 09:28 11/27/17 06:00 Intake and Output: 11/27/17 11/27/17 06:59 18:59 Intake Total 936 Output Total 1750 Balance -814 - Medications Medications: Current Medications Acetaminophen (Tylenol 325mg Tab) 650 mg PO Q4H PRN PRN Reason: Pain, Mild (1-3) Apixaban (Eliquis) 5 mg PO BID [facility] PRN Reason: Protocol Atorvastatin Calcium (Lipitor) 10 mg PO DIN [facility] Last Admin: 11/22/17 17:21 Dose: 10 mg Carvedilol (Coreg) 3.125 mg PO BID [facility] Last Admin: 11/27/17 09:28 Dose: 3.125 mg Cholecalciferol (Vitamin D) 2,000 intlu PO DAILY [facility] Last Admin: 11/27/17 09:29 Dose: 2,000 intlu Digoxin (Lanoxin) 0.125 mg PO 1400 [facility] Last Admin: 11/22/17 13:14 Dose: 0.125 mg Doxycycline Hyclate (Doryx) 100 mg PO Q12 [facility] PRN Reason: Protocol Last Admin: 11/27/17 09:28 Dose: 100 mg Famotidine (Pepcid) 20 mg PO BID [facility] Last Admin: 11/27/17 09:28 Dose: 20 mg Furosemide (Lasix) 40 mg PO DAILY [facility] Last Admin: 11/27/17 09:28 Dose: 40 mg Glipizide (Glucotrol) 10 mg PO ACB [facility] Last Admin: 11/24/17 08:01 Dose: Not Given Guaifenesin/Dextromethorphan (Robitussin Dm) 5 ml PO Q4H PRN PRN Reason: Cough Last Admin: 11/20/17 11:47 Dose: 5 ml Milrinone Lactate/Dextrose (Primacor 20mg/100ml D5w) 100 mls @ 6.325 mls/hr IV .[id number] PRN; Protocol; 0.2 MCG/KG/MIN PRN Reason: TITRATE PER MD ORDER Stop: 11/28/17 23:59 Last Admin: 11/27/17 04:26 Dose: 0.2 mcg/kg/min, 6.325 mls/hr Insulin Human Regular (Humulin R Med) 0 units SC ACHS [facility] PRN Reason: Protocol Last Admin: 11/27/17 08:39 Dose: Not Given [facility]albuterol [facility] (Xopenex) 0.[facility] Last Admin: 11/27/17 11:10 Dose: 0.63 mg Lisinopril (Zestril) 10 mg PO DAILY [facility] Last Admin: 11/22/17 11:11 Dose: Not Given Magnesium Oxide (Mag-Ox) 400 mg PO TID [facility] Stop: 11/29/17 10:01 Last Admin: 11/27/17 09:29 Dose: 400 mg Propranolol HCl (Inderal) 20 mg PO TID [facility] Last Admin: 11/27/17 09:28 Dose: 20 mg Verapamil HCl (Calan Sr Tab) 180 mg PO DAILY [facility] Last Admin: 11/27/17 09:28 Dose: 180 mg - Labs Labs: 11/26/17 06:20 11/27/17 05:30 PT 12.7 SECONDS (9.4-12.5) H 11/19/17 15:20 INR 1.16 (0.93-1.08) H 11/19/17 15:20 APTT 34.6 Seconds (25.1-36.5) 11/19/17 15:20 - Constitutional Appears: No Acute Distress - Head Exam Head Exam: NORMOCEPHALIC - Eye Exam Eye Exam: Normal appearance. absent: Scleral icterus - ENT Exam ENT Exam: Mucous Membranes Moist - Neck Exam Neck Exam: Normal Inspection - Respiratory Exam Respiratory Exam: NORMAL BREATHING PATTERN. absent: Respiratory Distress - Cardiovascular Exam Cardiovascular Exam: +S1, +S2 - GI/Abdominal Exam GI & Abdominal Exam: Soft, Normal Bowel Sounds. absent: Guarding, Tenderness, Rebound - Extremities Exam Extremities Exam: absent: Calf Tenderness - Neurological Exam Neurological Exam: Alert, Awake, Oriented x3 - Skin Skin Exam: Dry, Warm Assessment and Plan - Assessment and Plan (Free Text) Assessment: Assessment: Elevated LFT, may be secondary to low flow state pt was hypotensive yesterday, other differential to consider is medication induced, s/p mri/mrcp no gallstones of CBD dilitaion. Improving. Chest pain status post stress test,positive stress with reversible ischemia, s/ p cardiac cath, normal coronaries New-onset atrial fibrillation, on Eliquis Acute pancreatitis, unknown etiology,differentials to Consider is medication- induced, alcohol on CT found to have a pancreatic tail nodule, normal amylase/ lipase level, MRCP negative for pancreatic mass likely pancreatic tissue Left lower lobe irregular nodule r/o malignancy Renal insufficiency Hyperkalemia Vpi-[id number]-[id number] diabetes Hypertension Hyperlipidemia Plan: monitor LFT On oral antibiotics on Primacor drip Continue GI prophylaxis on Pepcid On Eliquis as per cardiology patient has been advised on numerous occasions to follow-up with Dr. Varma upon discharge, patient is currently scheduled for elective outpatient EGD and colon on 12/05/17. Seen and discussed with Dr. Healy. <Yung Healy V - Last Filed: 11/27/17 19:52> Objective - Vital Signs/Intake and Output Vital Signs (last 24 hours): Temp Pulse Resp BP Pulse Ox 98 F 70 18 110/80 97 11/27/17 19:16 11/27/17 19:16 11/27/17 19:16 11/27/17 19:16 11/27/17 06:00 - Medications Medications: Current Medications Acetaminophen (Tylenol 325mg Tab) 650 mg PO Q4H PRN PRN Reason: Pain, Mild (1-3) Apixaban (Eliquis) 5 mg PO BID [facility] PRN Reason: Protocol Last Admin: 11/27/17 17:57 Dose: 5 mg Atorvastatin Calcium (Lipitor) 10 mg PO DIN [facility] Last Admin: 11/27/17 17:57 Dose: 10 mg Carvedilol (Coreg) 3.125 mg PO BID [facility] Last Admin: 11/27/17 17:57 Dose: 3.125 mg Cholecalciferol (Vitamin D) 2,000 intlu PO DAILY [facility] Last Admin: 11/27/17 09:29 Dose: 2,000 intlu Digoxin (Lanoxin) 0.125 mg PO 1400 [facility] Last Admin: 11/22/17 13:14 Dose: 0.125 mg Doxycycline Hyclate (Doryx) 100 mg PO Q12 [facility] PRN Reason: Protocol Last Admin: 11/27/17 09:28 Dose: 100 mg Famotidine (Pepcid) 20 mg PO BID [facility] Last Admin: 11/27/17 17:57 Dose: 20 mg Furosemide (Lasix) 40 mg PO DAILY [facility] Last Admin: 11/27/17 09:28 Dose: 40 mg Glipizide (Glucotrol) 10 mg PO ACB [facility] Last Admin: 11/24/17 08:01 Dose: Not Given Guaifenesin/Dextromethorphan (Robitussin Dm) 5 ml PO Q4H PRN PRN Reason: Cough Last Admin: 11/20/17 11:47 Dose: 5 ml Milrinone Lactate/Dextrose (Primacor 20mg/100ml D5w) 100 mls @ 6.325 mls/hr IV .[id number] PRN; Protocol; 0.2 MCG/KG/MIN PRN Reason: TITRATE PER MD ORDER Stop: 11/28/17 23:59 Last Admin: 11/27/17 04:26 Dose: 0.2 mcg/kg/min, 6.325 mls/hr Insulin Human Regular (Humulin R Med) 0 units SC ACHS [facility] PRN Reason: Protocol Last Admin: 11/27/17 17:36 Dose: Not Given Levalbuterol HCl (Xopenex) 0.63 mg IH TIDRESP [facility] Last Admin: 11/27/17 19:26 Dose: 0.63 mg Lisinopril (Zestril) 10 mg PO DAILY [facility] Last Admin: 11/22/17 11:11 Dose: Not Given Magnesium Oxide (Mag-Ox) 400 mg PO TID [facility] Stop: 11/29/17 10:01 Last Admin: 11/27/17 17:57 Dose: 400 mg Propranolol HCl (Inderal) 20 mg PO TID [facility] Last Admin: 11/27/17 17:57 Dose: 20 mg Verapamil HCl (Calan Sr Tab) 180 mg PO DAILY [facility] Last Admin: 11/27/17 09:28 Dose: 180 mg - Labs Labs: 11/26/17 06:20 11/27/17 05:30 PT 12.7 SECONDS (9.4-12.5) H 11/19/17 15:20 INR 1.16 (0.93-1.08) H 11/19/17 15:20 APTT 34.6 Seconds (25.1-36.5) 11/19/17 15:20 Attending/Attestation - Attestation I have personally seen and examined this patient.: Yes I have fully participated in the care of the patient.: Yes I have reviewed all pertinent clinical information, including history, physical exam and plan: Yes Notes (Text): This is an addendum to GI progress report dictated by Sahara Fields APN.The patient was seen and examined earlier. Medical records, lab studies, imagings were reviewed. Last 24 hours events reviewed. Agreed with the above treatment plan as outlined in Sahara Fields APN's notes the with the addition of the following LFTs show a slight downward trend Status postcardiac cath Patient is on doxycycline Follow-up LFTs Elective GI workup as planned. Discussed with patient 11/27/17 19:50
--- NOTE | 2017-11-27 13:47 | PN ---
DATE: 11/27/2017 REASON FOR CONSULTATION: Followup AFib/flutter, chest pain, abnormal stress test, hypertension, hyperlipidemia, status post cardiac catheterization, normal coronaries, nonischemic cardiomyopathy, acute kidney injury, resolving. SUBJECTIVE: The patient denies any chest pain, shortness of breath, or any palpitation. Feels a lot better. OBJECTIVE: GENERAL: Not in apparent distress. VITAL SIGNS: As follows, temperature afebrile, heart rate 100, blood pressure 120/93. HEENT: PERRLA intact. NECK: Supple. No carotid bruits or thyromegaly. CHEST: Clear to auscultation. HEART: S1 and S2 regular. ABDOMEN: Soft. EXTREMITIES: Clubbing and cyanosis negative. LABORATORY DATA: Blood workup as follows: WBC 8.6, hemoglobin 13.6, hematocrit 39.5, platelet count 199. Chemistry shows sodium 145, potassium 4.3, chloride 107, carbon dioxide 26, anion gap of 17, BUN 38, creatinine 1.6. IMPRESSION: Atrial fibrillation/flutter, dilated cardiomyopathy, nonischemic, status post cardiac catheterization, nonischemic cardiomyopathy. Abnormal stress test status post cardiac catheterization, normal coronaries, multiple valvular regurgitation, most like secondary to dilated cardiomyopathy, atrial fibrillation/flutter. RECOMMENDATIONS: Start verapamil 180 mg from today. Continue Eliquis this afternoon. Continue Primacor for next 24 hours to improve the renal perfusion and increased cardiac output. Renal function is improving. Possible discharge in a day or 2. Discussed with patient's , Krystal, on the telephone about the patient's condition, prognosis and cath findings. 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 We will change verapamil to long-acting SR to 180 mg and discontinue 40 mg verapamil t.i.d. Continue Eliquis after tonight's dose. Continue digoxin. The patient is on propranolol for the control the heart rate. We will put Coreg and lisinopril as blood pressure is tolerated. We will hold lisinopril and hold because of the worsening of the renal insufficiency. We will put Coreg 3.125 b.i.d. Continue Eliquis. Continue gentle diuretics if the renal function improved, starting today p.o. . The patient is not on DARRYL inhibitor because of the worsening renal insufficiency and depending upon the renal function if the patient can tolerate, we can restart DARRYL inhibitors. We will continue Primacor for next 24 hours, possible discharge home once baseline returns to normal. Only 20 mL of contrast used and postprocedure was started on bicarbonate drip and Primacor was given. The patient had significant valvular regurgitation, decreased LV function. Not suitable for PEDRITO cardioversion because significantly improved left and right atrium which will throw the patient back into AFib even if the patient gets converted. Most likely, we did not convert, even we tried to back into AFib. So, the best thing is to continue anticoagulation and control the rate rather than rhythm control which is less likely in his case. The patient has trace aortic regurgitation, moderate mitral regurgitation, [id number] tricuspid regurgitation, RV systolic pressure 37, [id number] dilated left atrium, [id number] right atrium is dilated. Also, the patient had right heart catheterization done yesterday that shows RA 17, RV 45/17, PA 44/21, mean PA 28, wedge 20, ATP was range of 18, ejection fraction 35-40%, pulmonary vascular resistance 2.3 Cohen unit, only 20 mL of contrast was used and now the renal function is improving. Yesterday, it was 2.2, today creatinine is 1.6. We will repeat the blood workup tomorrow. Thank you Dr. Calderon/Dr. Hercules for providing me the opportunity in taking care of the patient, Jonathan Asif. Ceferino Bui MD [facility]
--- NOTE | 2017-11-27 23:48 | PN ---
DATE: 11/27/2017 SUBJECTIVE: Patient has no complaints of any chest pain or shortness of breath. He has no headaches. PHYSICAL EXAMINATION VITAL SIGNS: Temperature is 98, pulse is 70, blood pressure is 110/80, respirations 18. GENERAL: The patient is lying in bed, flat, comfortable. HEENT: No oral lesion. Anicteric sclerae. Moist mucosa. NECK: No JVD, adenopathy, or thyromegaly. CARDIOVASCULAR: S1 and S2, regular. No murmurs, rubs, or gallops. LUNGS: Clear to auscultation bilaterally. No wheeze, rales, or rhonchi. ABDOMEN: Bowel sounds are positive, soft, nontender and nondistended. EXTREMITIES: No cyanosis, clubbing or edema. LABORATORY DATA: White count of 8.6, hemoglobin 13.6. Creatinine is 1.6. ASSESSMENT: 1. Hyperkalemia, improved. 2. Acute kidney injury. 3. Hypoglycemia, improved. 4. Transaminitis. 5. Diabetes type 2. 6. Left lung nodule. 7. Atrial fibrillation. 8. Morbid obesity with a body mass index of 38. 9. Nonischemic cardiomyopathy, most likely secondary to alcoholism. PLAN: Patient is currently comfortable. His creatinine is improving. His creatinine this morning was 1.6. His potassium has improved as well. Patient also had elevated LFTs that are also improving. He does have a low magnesium, it is 1.3. Patient is on magnesium supplements 3 times a day. He was also given magnesium IV by Dr. Bui. Patient is going to continue with cough medications. He is on vitamin D for replacement. He is on Tylenol. Patient's glipizide is on hold because of hypoglycemia. Patient is on Coreg. We will repeat the patient's blood work tomorrow. He had cardiac cath done yesterday. He is on Primacor for the next 24 hours to improve his cardiac output which will help improve his creatinine. Patient most likely has nonischemic cardiomyopathy secondary to alcohol related. ASSESSMENT: Non-ischemic cardiomyopathy, most likely secondary to alcoholism. PLAN: Patient is going to continue Eliquis. He is not able to go an DARRYL at this point because of his hypokalemia. He has an EF of 35% to 40%. Chandler Hercules MD [facility] # [id number]
[2017-11-28 00:38] VITALS: RESP 20
[2017-11-28 06:19] VITALS: O2SAT 93
[2017-11-28 06:28] LABS: BASO # 0.01 K/mm3 (0.0-2.0); BASO % 0.1 % (0.0-3.0); EOS % 0.2 % (1.5-5.0); GRAN # 5.51 (1.4-6.5); GRAN % 56.6 % (50.0-68.0); HEMOGLOBIN 11.7 g/dL (14.0-18.0); LYMPH % 20.8 % (22.0-35.0); MEAN CELL VOLUME 96.4 fl (80.0-105.0); MEAN CORPUSCULAR HEMOGLOBIN 32.4 pg (25.0-35.0); MEAN CORPUSCULAR HGB CONC 33.6 g/dl (31.0-37.0); MEAN PLATELET VOLUME 9.8 fl (7.0-11.0); MONO # 2.2 (0.1-0.6); MONO % 22.3 % (1.0-6.0); RBC 3.61 10^6/uL (3.5-6.1); RED CELL DISTRIBUTION WIDTH 14.6 % (11.5-14.5); WHITE BLOOD COUNT 9.7 10^3/ul (4.5-11.0)
[2017-11-28 06:42] LABS: BLOOD UREA NITROGEN 34 mg/dL (7-21); CALCIUM 9.1 mg/dL (8.4-10.5); GFR AFRICAN-AMERICAN > 60; GFR NON-AFRICAN AMERICAN 50
[2017-11-28] MEDS: Levalbuterol 0.63 MG/3 ML Inhal Soln UD IH SCH (08:00)
[2017-11-28] MEDS: Insulin Reg-MEDIUM-Coverage SC SCH ×2 (08:07→13:03)
[2017-11-28] MEDS: Cholecalciferol 1,000 INTLU TAB PO SCH (10:37)
[2017-11-28] MEDS: Magnesium Oxide 400 mg Tab UD PO SCH (10:38)
[2017-11-28] MEDS: Verapamil 180 mg ER Tab PO SCH (10:43)
[2017-11-28 12:16] VITALS: BP 116/84; PULSE 118; TEMP 98
--- NOTE | 2017-11-28 14:54 | PN ---
DATE: 11/28/2017 REASON FOR CONSULTATION AND FOLLOWUP: Atrial fibrillator/flutter, abnormal stress test, cardiac catheterization done, ischemic cardiomyopathy, and acute kidney injury resolving. PHYSICAL EXAMINATION: VITAL SIGNS: As follows: Temperature is afebrile, heart rate is 116, and blood pressure is 101/57. HEENT: PERRLA intact. NECK: Supple. No carotid bruits or thyromegaly. CHEST: Clear to auscultation. HEART: S1 and S2 regular. ABDOMEN: Soft. EXTREMITIES: Clubbing and cyanosis negative. LABORATORY DATA: Blood workup as follows: WBC of 9.3, hemoglobin of 11.6, hematocrit of 34.8, and platelet of 199. Chemistry shows sodium of 140, potassium of 4, chloride of 102, carbon dioxide of 26, anion gap of 15, BUN of 30, and creatinine of 1.4. IMPRESSION: Status post acute kidney injury resolved, cardiomyopathy nonischemic, secondary to related alcohol cardiac catheterization, nonobstructive coronary artery disease, mitral regurgitation and tricuspid regurgitation, aortic regurgitation secondary to dilated cardiomyopathy, atrial fibrillation/flutter, dilated heart, dilated left atrium and right atrium. RECOMMENDATIONS: Continue Eliquis. Not a candidate for cardioversion because of , continue verapamil, change to 180 mg daily, continue Eliquis, and continue digoxin. Follow up in the office in 2 weeks and possible discharge today. Ceferino Bui MD
--- NOTE | 2017-11-28 19:34 | CP.PCM.PN ---
Subjective - Date & Time of Evaluation Date of Evaluation: 11/28/17 Time of Evaluation: 10:40 - Subjective Subjective: S&E at bedside, earlier today, chart reviewed, no acute overnight events, No diarrhea having formed stool, no overt GI bleeding reported. Feeling better. no new compliants. Objective - Vital Signs/Intake and Output Vital Signs (last 24 hours): Temp Pulse Resp BP Pulse Ox 98 F 118 H 20 116/84 93 L 11/28/17 12:00 11/28/17 12:00 11/28/17 12:00 11/28/17 12:00 11/28/17 06:00 Intake and Output: 11/28/17 11/29/17 18:59 06:59 Intake Total 780 Output Total 425 Balance 355 - Labs Labs: 11/28/17 06:00 11/28/17 06:00 PT 12.7 SECONDS (9.4-12.5) H 11/19/17 15:20 INR 1.16 (0.93-1.08) H 11/19/17 15:20 APTT 34.6 Seconds (25.1-36.5) 11/19/17 15:20 - Constitutional Appears: No Acute Distress - Eye Exam Eye Exam: Normal appearance. absent: Scleral icterus - ENT Exam ENT Exam: Mucous Membranes Moist - Respiratory Exam Respiratory Exam: NORMAL BREATHING PATTERN. absent: Respiratory Distress - Cardiovascular Exam Cardiovascular Exam: +S1, +S2 - GI/Abdominal Exam GI & Abdominal Exam: Soft, Normal Bowel Sounds. absent: Guarding, Tenderness, Rebound - Extremities Exam Extremities Exam: absent: Calf Tenderness, Pedal Edema - Neurological Exam Neurological Exam: Alert, Awake, Oriented x3 Assessment and Plan - Assessment and Plan (Free Text) Assessment: Assessment: Elevated LFT, may be secondary to low flow state pt was hypotensive yesterday, other differential to consider is medication induced, s/p mri/mrcp no gallstones of CBD dilitaion. Improving. Chest pain status post stress test,positive stress with reversible ischemia, s/ p cardiac cath, normal coronaries New-onset atrial fibrillation, on Eliquis Acute pancreatitis, unknown etiology,differentials to Consider is medication- induced, alcohol on CT found to have a pancreatic tail nodule, normal amylase/ lipase level, MRCP negative for pancreatic mass likely pancreatic tissue Left lower lobe irregular nodule r/o malignancy Renal insufficiency Hyperkalemia Rwu-yctbcgb-gloyzvffv diabetes Hypertension Hyperlipidemia Plan: continue to monitor LFT On oral antibiotics on Primacor drip Continue GI prophylaxis on Pepcid On Eliquis as per cardiology patient has been advised on numerous occasions to follow-up with Dr. Varma (GI ) upon discharge, patient is currently scheduled for elective outpatient EGD and colon on 12/05/17 and to also notify that on Eliquis. Seen and discussed with Dr. Healy.
--- NOTE | 2017-11-29 04:17 | DS ---
HOSPITAL COURSE: The patient was admitted to the hospital, was found to have atrial fibrillation. The patient also developed acute kidney injury. He had a cardiac cath because of abnormal stress test. He has multiple valvular regurgitation. He had dilated cardiomyopathy. The patient will be on Eliquis for his anticoagulation. His renal function has been improving. He is feeling well. He is able to ambulate. He will be sent home today to follow up as an outpatient. No headaches. No dizziness. No nausea or vomiting. PHYSICAL EXAMINATION: VITAL SIGNS: Temperature is 98.2, pulse is 119, blood pressure is 108/71, and respirations 20. ASSESSMENT: 1. Hyperkalemia, improved. 2. Acute kidney injury, improving. 3. Hypoglycemia, resolved. 4. Transaminitis, improving. 5. Diabetes type 2. 6. Left lung nodule. 7. Atrial fibrillation. 8. Morbid obesity with a body mass index of 38. 9. Nonischemic cardiomyopathy, most likely secondary to alcoholism. PLAN: The patient is currently comfortable. The patient is going to be on Eliquis. He was on doxycycline. We will discontinue the patient's doxycycline at this point. He is on carvedilol. The patient is going to continue with Glucotrol for his diabetes. He is on digoxin. The patient is on Lipitor for dyslipidemia. He has been on milrinone for his cardiomyopathy. The patient is on placed on hold because of the hyperkalemia that he had developed. CONDITION: Stable. ACTIVITIES: Increase as tolerated. Chandler Hercules MD
== END 2017-11-28 17:19 | disposition home or self-care (01) | DRG 286 ==
LOC: ED 15:18 → ERH 17:23 → 3RSO 18:56 → 2RSO 11-26 14:47
PROVIDERS: ADMIT Internal Medicine; ATTEND Internal Medicine
PROC: 4A023N8 Measurement of Cardiac Sampling and Pressure, Bilateral, Percutaneous Approach (ICD-10-PCS; principal; 2017-11-26)
PROC: B2151ZZ Fluoroscopy of Left Heart using Low Osmolar Contrast (ICD-10-PCS; 2017-11-26)
PROC: B2111ZZ Fluoroscopy of Multiple Coronary Arteries using Low Osmolar Contrast (ICD-10-PCS; 2017-11-26)
DX: I48.92 Unspecified atrial flutter (principal); K85.90 Acute pancreatitis without necrosis or infection, unspecified; N17.9 Acute kidney failure, unspecified; I13.0 Hypertensive heart and chronic kidney disease with heart failure and stage 1 through stage 4 chronic kidney disease, or unspecified chronic kidney disease; I25.10 Atherosclerotic heart disease of native coronary artery without angina pectoris; E11.649 Type 2 diabetes mellitus with hypoglycemia without coma; I50.9 Heart failure, unspecified; E11.22 Type 2 diabetes mellitus with diabetic chronic kidney disease; I08.3 Combined rheumatic disorders of mitral, aortic and tricuspid valves; E83.42 Hypomagnesemia; N18.9 Chronic kidney disease, unspecified; I42.0 Dilated cardiomyopathy; J44.9 Chronic obstructive pulmonary disease, unspecified; E66.01 Morbid (severe) obesity due to excess calories; E78.5 Hyperlipidemia, unspecified; E78.00 Pure hypercholesterolemia, unspecified; I42.6 Alcoholic cardiomyopathy; F10.20 Alcohol dependence, uncomplicated; E87.5 Hyperkalemia; I48.91 Unspecified atrial fibrillation; R91.1 Solitary pulmonary nodule; Z87.11 Personal history of peptic ulcer disease; Z86.010 Personal history of colon polyps; Z79.82 Long term (current) use of aspirin; Z79.84 Long term (current) use of oral hypoglycemic drugs; Z87.891 Personal history of nicotine dependence; Z68.38 Body mass index [BMI] 38.0-38.9, adult